=== PATIENT | female | born 1935 | race African-American/Black ===

== ENCOUNTER 2017-02-12 06:40 | Inpatient (IN) | payer MEDICARE, OTHER ==
[2017-02-12] VITALS (8 sets, daily range): BP systolic 114–163; BP diastolic 67–80
[~2017-02-12] VITALS: Ht 170.2 cm; Wt 70.8 kg
[2017-02-12] MEDS ORDERED: Morphine Sulfate 4mg/ml Inj IVP ONE (06:45)
--- NOTE | 2017-02-12 06:59 | Emergency Room Report ---
History of Present Illness General Chief Complaint: Abdominal Pain Source: Patient, EMS Present Illness HPI The patient presents with left flank and left chest pain. It is a constant pain and also is intermittent quality to it. She rates it 7/10 and sharp. It' s not exertional. When he gets worse she's not doing anything differently. She denies any fevers, nausea, vomiting, diarrhea. She last moved her bowels yesterday and they were normal. The patient is on Elaquis. She states it's for her circulation. Denies DVT or PE. She's never had this pain before. Stomach cancer treated 2009 with surgery, chemo and radiation. Allergies: Coded Allergies: Dried Fruit (Verified Allergy, Unknown, 02/12/17) all fruit PEANUT (Verified Allergy, Unknown, 02/12/17) Patient History Past Medical History: see triage record Past Surgical History: other - stomach cancer surgery Social History Narrative Lives with her son Last Menstrual Period: NONE Reviewed Nursing Documentation: PMH: Agreed, PSxH: Agreed Nursing Documentation-PMH Hx Hypertension: Yes Hx Cancer: Yes - STOMACH CA Review of Systems All Other Systems: negative except mentioned in HPI Physical Exam Vital Signs Date Time Temp Pulse Resp B/P Pulse Ox O2 Delivery O2 Flow Rate FiO2 02/12/17 06:29 97.5 70 20 163/81 97 Room Air Sp02 EP Interpretation: reviewed, normal General Appearance: well appearing, no apparent distress, GCS 15 Head: normocephalic Eyes: bilateral eye PERRL, bilateral eye conjunctivae pale ENT: moist mucus membranes Neck: supple Respiratory: chest non-tender, lungs clear, normal breath sounds, other - she points to area under L breast and upper abdomen where she feels pain Cardiovascular #1: regular rate, rhythm Cardiovascular #2: 2+ radial (R) Gastrointestinal: normal inspection, normal bowel sounds, non tender, no mass, non-distended Musculoskeletal: back normal, gait/station normal, normal range of motion Neurologic: alert, oriented x3, grossly normal Psychiatric: mood/affect normal Skin: warm/dry, pallor Medical Decision Making Diagnostic Impression: Primary Impression: Chest pain Qualified Codes: R07.9 - Chest pain, unspecified Additional Impression: Abdominal pain Qualified Codes: R10.12 - Left upper quadrant pain ER Course Patient presents with left flank and left chest pain. Differential includes acute myocardial infarction, renal stone, unstable angina, gastritis amongst others. She's on Oquist at this time. Have to consider possibility of a pulmonary embolus. Evaluation will be with labs, EKG, chest x-ray and CT any of abdomen and chest. She was treated with IV hydration and analgesia. Difficult to differentiate between chest and abdominal pain. Labs unremarkable however, still paroxysms of pain. Analgesia repeated. D dimer elevated CTA ordered. CTA negative. Still with significant pain. CT abd with gall stone - pain not on R (excludes cholecystics). Admit med, Dr. Barreto. Last Vital Signs Date Time Temp Pulse Resp B/P Pulse Ox O2 Delivery O2 Flow Rate FiO2 02/12/17 20:00 97.9 54 21 114/72 97 Room Air EKG Diagnostic Results Rate: bradycardiac Rhythm: NSR ST Segments: no acute changes Rhythm Strip Diag. Results EP Interpretation: yes Rhythm: no PVC's, no ectopy Chest X-Ray Diagnostic Results EP Interpretation: Yes Findings: no consolidation, no effusion, no pneumothorax, no acute cardiopulmonary disease Number of Views: 1 CT/MRI/US Diagnostic Results CT/MRI/US Diagnostic Results #1: Imaging Test Ordered: CTA chest Impression no PE CT/MRI/US Diagnostic Results #2: Imaging Test Ordered: abd/pelvis Impression Impression: Cholelithiasis with gallbladder distention. Please correlate clinically for cholecystitis. Moderate fecal retention. Spondylosis Bilateral renal cysts Accessory spleen Last Vital Signs Date Time Temp Pulse Resp B/P Pulse Ox O2 Delivery O2 Flow Rate FiO2 02/12/17 06:29 97.5 70 20 163/81 97 Room Air Status: unchanged Disposition: ADMITTED INPATIENT Condition: Serious Eduardo Williamson M.D. February 12, 2017 06:59
[2017-02-12 07:06] LABS: EOSINOPHILS % (AUTO) 3.1 % (0.0-3.0); LYMPHOCYTES % (AUTO) 35.9 % (20.0-45.0); MEAN CORPUSCULAR HGB CONC 32.8 G/DL (32.0-36.0); MEAN CORPUSCULAR VOLUME 104 FL (80-99); MEAN PLATELET VOLUME 6.5 FL (6.5-10.1); MONOCYTES % (AUTO) 12.9 % (1.0-10.0); NEUTROPHILS % (AUTO) 47.1 % (45.0-75.0); PLATELET COUNT 245 K/UL (150-450); RED BLOOD COUNT 3.84 M/UL (4.20-5.40); RED CELL DISTRIBUTION WIDTH 11.4 % (11.6-14.8); WHITE BLOOD COUNT 3.5 K/UL (4.8-10.8)
[2017-02-12 07:11] LABS: INR 1.1 (0.9-1.1)
[2017-02-12 07:15] LABS: TROPONIN I < 0.30 ng/mL (<=0.30)
[2017-02-12] MEDS ORDERED: TYLENOL EXTRA500 MG ORAL (07:22)
[2017-02-12] MEDS ORDERED: VITAMIN D1000 UNI1 ORAL (07:22)
[2017-02-12] MEDS ORDERED: ELIQUIS5 MG PO (07:22)
[2017-02-12] MEDS ORDERED: AMIODARONE HCL400 M1 ORAL (07:22)
[2017-02-12] MEDS ORDERED: DOCUSATE SODIU100 MG ORAL (07:22)
[2017-02-12] MEDS ORDERED: FERROUS SULFAT325 MG ORAL (07:22)
[2017-02-12] MEDS ORDERED: HYDROCHLOROTH12.5 M2 ORAL (07:22)
[2017-02-12] MEDS ORDERED: VITAMIN B-121000 MC2 SL (07:22)
[2017-02-12] MEDS ORDERED: LOVASTATIN40 MG ORAL (07:22)
[2017-02-12 07:23] LABS: ALANINE AMINOTRANSFERASE 20 U/L (3-33); ALBUMIN/GLOBULIN RATIO 0.9 (1.0-2.7); ANION GAP 17 (5-15); ASPARTATE AMINO TRANSFERASE 25 U/L (5-40); CALCIUM 10.4 mg/dL (8.6-10.2); CARBON DIOXIDE 26 mEQ/L (20-30); CHLORIDE 96 mEQ/L (98-107); CREATININE 1.5 mg/dL (0.5-0.9); HEMOLYSIS 4; LIPASE 40 U/L (< 60); POTASSIUM 3.7 mEQ/L (3.4-4.9); SODIUM 139 mEQ/L (135-145); TOTAL PROTEIN 7.9 g/dL (6.6-8.7)
[2017-02-12] MEDS ORDERED: Morphine Sulfate 4mg/ml Inj IVP PRN (09:15)
[2017-02-12 09:23] LABS: APPEARANCE,URINE CLEAR; KETONES,URINE NEGATIVE (NEGATIVE); LEUKOCYTE ESTERASE ,URINE NEGATIVE (NEGATIVE); NITRITE,URINE NEGATIVE (NEGATIVE); PH,URINE 6.5 (4.5-8.0); PROTEIN,URINE NEGATIVE (NEGATIVE); UROBILINOGEN,URINE NORMAL MG/DL (0.0-1.0)
--- NOTE | 2017-02-12 10:15 | Diagnostic Imaging Report ---
Indication: Chest Pain Comparison: None A single view chest radiograph was obtained. Findings: Cardiomediastinal appearance is within normal limits for age. Pulmonary vascularity is appropriate. The diaphragmatic contour is smooth and costophrenic angles are sharp. No pleural effusions are identified. The bones are osteopenic. Impression: No acute findings
--- NOTE | 2017-02-12 10:49 | Diagnostic Imaging Report ---
Indication: Chest pain Technique: Continuous helical transaxial imaging of the chest was obtained from the thoracic inlet to the upper abdomen during rapid intravenous contrast administration. Arterial phase of enhancement obtained. Coronal 2-D reformats were also obtained and maximum intensity projection images in multiple planes. Study obtained in a Siemens sensation [address] Total Dose length Product (DLP): [address] Dose Index Volume (CTDIvol): 12.6, 4.6, 88.4, 17.6, 15.2 mGy Comparison: None Findings: The pulmonary artery is well opacified and shows no filling defects. The lungs are clear. There is no adenopathy, pleural or pericardial effusions are identified. The aortic dissection or aneurysm identified within the chest. Aorta shows mural calcification. Cystic focus noted within the right lower lobe possibly a pneumatocele. Mild posterior basilar atelectasis is present. There is a 1.6 cm nodule, possibly cystic in the anterior chest wall to the right side. This may be of dermal origin such as a sebaceous cyst. This could be within the breast parenchyma. Suggest outpatient mammographic/sonographic workup. Impression: No evidence of pulmonary embolus, aortic dissection or aneurysm. Mild atherosclerotic vascular disease noted. Incidental 1.6 cm probable cystic nodule medial right breast/chest wall. Suggest sonographic/mammographic workup. The CT scanner at [facility] is accredited by the [employer] and the scans are performed using dose optimization techniques as appropriate to a performed exam including Automatic Exposure control.
--- NOTE | 2017-02-12 10:51 | Diagnostic Imaging Report ---
Indication: Abdominal pain Technique: Continuous helical transaxial imaging of the abdomen and pelvis was obtained from the lung bases to the pubic symphysis during intravenous contrast administration. Coronal 2-D reformats were also obtained. Study obtained in a Siemens sensation [address] Total Dose length Product (DLP): Refer to CTA chest mGycm CT Dose Index Volume (CTDIvol): Refer CTA chest mGy Comparison: None Findings: Large gallstone noted within a distended gallbladder. No obvious wall thickening identified. Is a moderate amount of fecal material within the colon. The liver is unremarkable. Accessory spleen noted. Pancreas is unremarkable. 4 cm cyst noted in the right kidney. Other smaller cysts are noted. There is no evidence of free fluid or bowel obstruction. There is moderate amount of fecal material within the colon and some distention of the rectum due to feces. Minimal anterolisthesis L4 on 5 demonstrated. Vacuum disc phenomena at L4-5 and L5-S1, hypertrophic spurring of the endplates and facets noted. Impression: Cholelithiasis with gallbladder distention. Please correlate clinically for cholecystitis. Moderate fecal retention. Spondylosis Bilateral renal cysts Accessory spleen The CT scanner at [facility] is accredited by the [employer] and the scans are performed using dose optimization techniques as appropriate to a performed exam including Automatic Exposure control.
[2017-02-12] MEDS ORDERED: Enalaprilat 2.5mg/2ml Inj IV PRN (12:00)
[2017-02-12] MEDS ORDERED: DuoNeb 0.5-3(2.5)mg/3ml neb HHN PRN (12:00)
[2017-02-12] MEDS ORDERED: Miralax 17gm pkt ORAL PRN (12:00)
[2017-02-12] MEDS ORDERED: Nitroglycerin Subl 0.4mg tab (Bottle Of 25) SL PRN (12:00)
[2017-02-12] MEDS ORDERED: Morphine Sulfate 2mg/ml Inj IVP PRN (12:00)
--- NOTE | 2017-02-12 13:57 | Consultation ---
Consult Note Consult Note ID Dic# [id number] VIIV BOWLES M.D. February 12, 2017 13:57
[2017-02-12 14:41] LABS: TROPONIN I < 0.30 ng/mL (<=0.30)
--- NOTE | 2017-02-12 15:06 | Consultation ---
Consult Note Consult Note Cardiology for Dr. Kumar full note dictated # [id number] 81 yo AAF w/ htn, PAF and gastric CA, s/p surgery/chemo/xrt in 2008 adm w L sided CP. In ER, chest CTA negative for PE, Ao dissection, but w/ R breast vs chest wall cystic mass. Initial troponin normal. She is bradycardic- poss ectopic atrial rhythm. REc: adm to tele check serial troponins, ekgs and echo Decrease amiodarone to 100 mg/d Change eliquis to iv heparin in case invasive procedures needed. DIANA MENDEZ February 12, 2017 15:06
[2017-02-12] MEDS ORDERED: Heparin 25,000u/D5W 500ml 500 ML IV SCH (15:30)
[2017-02-12] MEDS ORDERED: Heparin 25,000 units/D5W 500ml (ACS/MI) IV SCH (15:45)
[2017-02-12] MEDS ORDERED: Heparin 5000 units/ml inj IV ONE ×2 (15:45→18:00)
[2017-02-12] MEDS ORDERED: Diltiazem 25mg/5ml IV PRN (16:00)
[2017-02-12 16:10] LABS: BASOPHILS % (AUTO) 0.8 % (0.0-2.0); EOSINOPHILS % (AUTO) 0.6 % (0.0-3.0); LYMPHOCYTES % (AUTO) 16.2 % (20.0-45.0); MEAN CORPUSCULAR HEMOGLOBIN 34.1 PG (27.0-31.0); MEAN CORPUSCULAR VOLUME 103 FL (80-99); MEAN PLATELET VOLUME 6.5 FL (6.5-10.1); MONOCYTES % (AUTO) 6.9 % (1.0-10.0); NEUTROPHILS % (AUTO) 75.5 % (45.0-75.0); PLATELET COUNT 226 K/UL (150-450); RED CELL DISTRIBUTION WIDTH 11.3 % (11.6-14.8); WHITE BLOOD COUNT 4.7 K/UL (4.8-10.8)
--- NOTE | 2017-02-12 16:24 | History and Physical ---
History of Present Illness General Date patient seen: February 12, 2017 Reason for Hospitalization: Abdominal Pain Present Illness HPI 81 year old female with hx of afib, HTN, brought in by paramedics with CC of left sided abdominal pain and constipation. A CT of abdomen and chest in ER showed cholangitis. Because of her hx of afib she is admitted to telemetry. Allergies: Coded Allergies: Dried Fruit (Verified Allergy, Unknown, 02/12/17) all fruit PEANUT (Verified Allergy, Unknown, 02/12/17) Medication History Scheduled Amiodarone Hcl* (Amiodarone Hcl*), 200 MG ORAL EVERY 12 HOURS, (Reported) Apixaban (Eliquis), 5 MG PO DAILY, (Reported) Cholecalciferol (Vitamin D3)* (Vitamin D*), 5,000 UNIT ORAL DAILY, (Reported) Docusate Sodium* (Docusate Sodium*), 100 MG ORAL DAILY, (Reported) Ferrous Sulfate* (Ferrous Sulfate*), 325 MG ORAL THREE TIMES A DAY, (Reported) Hydrochlorothiazide* (Hydrochlorothiazide*), 12.5 MG ORAL DAILY, (Reported) Lovastatin (Lovastatin), 40 MG ORAL BEDTIME, (Reported) Scheduled PRN Acetaminophen* (Tylenol Extra Strength*), 500 MG ORAL Q6H PRN for Mild Pain/ Temp > 100.5, (Reported) Miscellaneous Medications Cyanocobalamin (Vitamin B-12) (Vitamin B-12), 1,000 MCG SL, (Reported) Patient History Healthcare decision maker LYRIC Amezquita Resuscitation status Full Code Advanced Directive on File Past Medical/Surgical History Past Medical/Surgical History: (1) Paroxysmal a-fib Review of Systems Gastrointestinal: Reports: constipation All Other Systems: negative except mentioned in HPI Physical Exam General Appearance: WD/WN Lines, tubes and drains: peripheral, central line HEENT: normocephalic, atraumatic Neck: non-tender, normal alignment Respiratory/Chest: chest wall non-tender, lungs clear Cardiovascular/Chest: normal peripheral pulses, normal rate Abdomen: normal bowel sounds, non tender Genitourinary/Rectal: normal genital exam, normal rectal exam, normal prostate exam Extremities: non-tender Skin Exam: normal pigmentation Neurologic: restorative coordinator II-XII grossly normal Last 24 Hour Vital Signs Date Time Temp Pulse Resp B/P Pulse Ox O2 Delivery O2 Flow Rate FiO2 02/12/17 15:53 97.7 55 18 147/77 99 Room Air 02/12/17 12:31 96.3 49 18 159/80 94 Room Air 02/12/17 11:56 52 18 145/67 100 Room Air 02/12/17 11:54 52 16 145/67 98 Room Air 02/12/17 10:30 52 18 145/67 100 Room Air 02/12/17 09:39 54 18 153/79 100 Room Air 02/12/17 09:39 97.5 02/12/17 08:21 54 16 163/75 100 Room Air 02/12/17 07:24 97.5 02/12/17 06:40 97.8 53 15 158/76 100 Room Air 02/12/17 06:29 97.5 70 20 163/81 97 Room Air Laboratory Tests Test 02/12/17 06:45 02/12/17 09:10 02/12/17 14:15 02/12/17 15:50 White Blood Count 3.5 K/UL (4.8-10.8) L 4.7 K/UL (4.8-10.8) L Red Blood Count 3.84 M/UL (4.20-5.40) L 3.50 M/UL (4.20-5.40) L Hemoglobin 13.1 G/DL (12.0-16.0) 11.9 G/DL (12.0-16.0) L Hematocrit 39.9 % (37.0-47.0) 36.2 % (37.0-47.0) L Mean Corpuscular Volume 104 FL (80-99) H 103 FL (80-99) H Mean Corpuscular Hemoglobin 34.0 PG (27.0-31.0) H 34.1 PG (27.0-31.0) H Mean Corpuscular Hemoglobin Concent 32.8 G/DL (32.0-36.0) 33.0 G/DL (32.0-36.0) Red Cell Distribution Width 11.4 % (11.6-14.8) L 11.3 % (11.6-14.8) L Platelet Count 245 K/UL (150-450) 226 K/UL (150-450) Mean Platelet Volume 6.5 FL (6.5-10.1) 6.5 FL (6.5-10.1) Neutrophils (%) (Auto) 47.1 % (45.0-75.0) 75.5 % (45.0-75.0) H Lymphocytes (%) (Auto) 35.9 % (20.0-45.0) 16.2 % (20.0-45.0) L Monocytes (%) (Auto) 12.9 % (1.0-10.0) H 6.9 % (1.0-10.0) Eosinophils (%) (Auto) 3.1 % (0.0-3.0) H 0.6 % (0.0-3.0) Basophils (%) (Auto) 1.0 % (0.0-2.0) 0.8 % (0.0-2.0) Prothrombin Time 11.0 SEC (9.30-11.50) Prothromb Time International Ratio 1.1 (0.9-1.1) Activated Partial Thromboplast Time 28 SEC (23-33) Pending Sodium Level 139 mEQ/L (135-145) Potassium Level 3.7 mEQ/L (3.4-4.9) Chloride Level 96 mEQ/L (98-107) L Carbon Dioxide Level 26 mEQ/L (20-30) Anion Gap 17 (5-15) H Blood Urea Nitrogen 25 mg/dL (7-23) H Creatinine 1.5 mg/dL (0.5-0.9) H Estimat Glomerular Filtration Rate mL/min (>60) Glucose Level 94 mg/dL (74-106) Calcium Level 10.4 mg/dL (8.6-10.2) H Total Bilirubin 0.7 mg/dL (0.0-1.2) Aspartate Amino Transf (AST/SGOT) 25 U/L (5-40) Alanine Aminotransferase (ALT/SGPT) 20 U/L (3-33) Alkaline Phosphatase 67 U/L (35-104) Troponin I < 0.30 ng/mL (<=0.30) < 0.30 ng/mL (<=0.30) Total Protein 7.9 g/dL (6.6-8.7) Albumin 3.9 g/dL (3.5-5.2) Globulin 4.0 g/dL Albumin/Globulin Ratio 0.9 (1.0-2.7) L Lipase 40 U/L (< 60) Urine Color Pale yellow Urine Appearance Clear Urine pH 6.5 (4.5-8.0) Urine Specific Cross 1.005 (1.005-1.035) Urine Protein Negative (NEGATIVE) Urine Glucose (UA) Negative (NEGATIVE) Urine Ketones Negative (NEGATIVE) Urine Occult Blood Negative (NEGATIVE) Urine Nitrite Negative (NEGATIVE) Urine Bilirubin Negative (NEGATIVE) Urine Urobilinogen Normal MG/DL (0.0-1.0) Urine Leukocyte Esterase Negative (NEGATIVE) D-Dimer 60 ng/mL (<500) Height (Feet): 5 Height (Inches): 7.00 Weight (Pounds): 156 Medications Current Medications Medications (Trade) Dose Ordered Sig/Amanda Route PRN Reason Start Time Stop Time Status Last Admin Dose Admin Acetaminophen (Tylenol) 650 mg Q4H PRN ORAL T>100.5 02/12/17 12:00 03/14/17 11:59 Albuterol/ Ipratropium (DuoNeb 0.5-3(2.5)mg/3ml) 3 ml Q4H PRN HHN Shortness of Breath 02/12/17 12:00 02/17/17 11:59 Amiodarone HCl 100 mg 100 mg DAILY ORAL 02/13/17 09:00 03/15/17 08:59 Aspirin (ASA) 162 mg DAILY ORAL 02/13/17 09:00 03/15/17 08:59 Dextrose/Sodium Chloride (D5 0.45% NS) 1,000 ml @ 75 mls/hr [id number] IV 02/12/17 16:15 03/14/17 16:14 UNV Diltiazem HCl (Cardizem) 10 mg EVERY HOUR PRN IV HR>120 02/12/17 16:00 03/14/17 15:59 Docusate Sodium (Colace) 100 mg THREE TIMES A DAY ORAL 02/12/17 18:00 03/14/17 17:59 UNV Enalaprilat (Vasotec) 2.5 mg Q6H PRN IV sbp more than 160 02/12/17 12:00 03/14/17 11:59 Heparin Sodium (Porcine) (Heparin 5000 units/ml) 5,000 units ONCE ONCE IV 02/12/17 18:00 02/12/17 18:01 Heparin Sodium/ Dextrose (Heparin) 500 ml @ 25.474 mls/ hr Q24H IV 02/12/17 18:00 03/14/17 17:59 Lactulose (Cephulac) 30 gm THREE TIMES A DAY ORAL 02/12/17 18:00 03/14/17 17:59 UNV Mineral Oil (Fleet's Mineral Oil Enema) 133 ml EVERY OTHER DAY RECTAL 02/14/17 09:00 03/16/17 08:59 UNV Morphine Sulfate (Morphine Sulfate) 2 mg Q4H PRN IVP Severe Pain (Pain Scale 7-10) 02/12/17 12:00 02/19/17 11:59 Nitroglycerin (Ntg) 0.4 mg Q5MIN X 3 DOSES PRN SL Prn Chest Pain 02/12/17 12:00 03/14/17 11:59 Ondansetron HCl (Zofran) 4 mg Q6H PRN IVP Nausea & Vomiting 02/12/17 12:00 03/14/17 11:59 02/12/17 16:06 Pantoprazole (Protonix) 40 mg DAILY ORAL 02/13/17 09:00 03/15/17 08:59 Polyethylene Glycol (Miralax) 17 gm BEDTIME ORAL 02/12/17 21:00 03/14/17 20:59 UNV Polyethylene Glycol (Miralax) 17 gm DAILYPRN PRN ORAL Constipation 02/12/17 12:00 03/14/17 11:59 Sennosides 8.6 mg 8.6 mg DAILY ORAL 02/13/17 09:00 03/15/17 08:59 UNV Temazepam (Restoril) 15 mg HSPRN PRN ORAL Insomnia 02/12/17 21:00 02/19/17 20:59 Assessment/Plan Problem List: (1) ACS (acute coronary syndrome) ICD Codes: I24.9 - Acute ischemic heart disease, unspecified SNOMED: 972624960 (2) Paroxysmal a-fib ICD Codes: I48.0 - Paroxysmal atrial fibrillation SNOMED: 336456125 (3) Cholecystitis ICD Codes: K81.9 - Cholecystitis, unspecified SNOMED: 15949955, 82882405 (4) Constipation ICD Codes: K59.00 - Constipation, unspecified SNOMED: 41456421 Assessment/Plan NPO GI evaluation cardio evaluation laxatives monitor heart rate JAIME IVORY February 12, 2017 16:24
[2017-02-12] MEDS ORDERED: D5 1/2NS 1,000 ML IV SCH (16:45)
[2017-02-12] MEDS: Docusate 100mg cap ORAL SCH (17:45)
[2017-02-12] MEDS: Lactulose 20gm/30ml UDC ORAL SCH (17:45)
[2017-02-12] MEDS ORDERED: Heparin 25,000u/D5W 500ml (VTE/AF) IV SCH (18:00)
--- NOTE | 2017-02-12 18:15 | Consultation ---
DATE OF CONSULTATION: CARDIOLOGY CONSULTATION Coverage for Dr. Kumar. REASON FOR CONSULT: Left chest pain. HISTORY OF PRESENT ILLNESS: The patient is an 81-year-old woman with a history of stomach cancer, treated in 2008 with surgery, chemotherapy and radiation, history of paroxysmal atrial fibrillation and hypertension, who presents with left chest pain, which started early on the morning of admission about 4 a.m. She describes it as a intermittent sharp pain. She presented to the emergency room where blood pressure was 163/81, pulse 70, and sinus rhythm. Her initial EKG did not show any acute ischemic changes. She was admitted for further treatment. She reports that on moving from the emergency room to the medical floor. She experienced dizziness and nausea. She denies vomiting, dyspnea, palpitations or syncope. She has not had any previous similar symptoms. PAST MEDICAL HISTORY: As noted above. Also, history of hyperlipidemia and history of gastric cancer, treated with surgery, chemotherapy and radiation. MEDICATIONS: At home, iron sulfate 324 mg daily, Eliquis 5 mg p.o. b.i.d., amiodarone 200 mg p.o. daily, hydrochlorothiazide 12.5 mg daily, lovastatin 40 mg daily, and Colace 100 mg p.o. daily. ALLERGIES: No known drug allergies. SOCIAL HISTORY: The patient is a nonsmoker. Does not drink alcohol. REVIEW OF SYSTEMS: Constitutional: No recent significant weight gain or loss. No fever chills or sweats. Gastrointestinal: No previous nausea, vomiting, diarrhea or abdominal pain. Musculoskeletal: Intermittent joint pain. Leg pain with walking. PHYSICAL EXAMINATION: GENERAL: Alert, well-developed female, in no acute distress. VITAL SIGNS: Blood pressure is 159/80, pulse 49 and regular, respirations 18, and afebrile. HEENT: Normocephalic and atraumatic. Sclerae anicteric. Pupils are equal, round, and reactive to light. Oral mucosa are moist. NECK: Supple. There is no jugular venous distention. No carotid bruits. LUNGS: Clear to auscultation bilaterally. HEART: Bradycardic. Regular S1 and S2 with no murmurs, rubs, S3, or S4. ABDOMEN: Soft and nontender. No palpable mass. Healed midline surgical scar. EXTREMITIES: No cyanosis, clubbing, or edema. A 2+ dorsalis pedis pulse and posterior tibial pulses bilaterally. SKIN: No rashes or lesions. PSYCHIATRIC: Appropriate mood and affect. NEUROLOGIC: No focal or motor deficits. LABORATORY AND DIAGNOSTIC DATA: Hemoglobin 13, white blood count 3500 and platelets 245,000. Troponin less than 0.3 on admission and repeat today at 215. Potassium 3.7, BUN 25, creatinine 1.5, and sodium 139. Urinalysis is negative. EKG shows sinus bradycardia at a rate of 55 beats per minute with short FL interval, possible ectopic atrial rhythm, poor R progression V1 and V2, T-wave inversion in V3 and V4, leads III and generalized flattening of the T-waves. ASSESSMENT AND RECOMMENDATIONS: The patient is an 81-year-old woman who presents with left-sided chest pain. She has a history of hypertension, paroxysmal atrial fibrillation, and gastric cancer treated in 2008. The cause of her pain is unclear. She did have an abdominal CT, which showed cholelithiasis with gallbladder distention. It is unlikely that this would be the cause of her symptoms given that the pain is left-sided. She has no abdominal pain or acute abdominal exam findings. She does not appear with evidence for an acute coronary syndrome, as initial troponins are negative. I would further evaluate for possible pulmonary embolus with D-dimer and venous duplex of the lower extremities, possibly also with ventilation/perfusion scan. She is noted to be bradycardic, possibly with an ectopic atrial rhythm. I would decrease amiodarone and will change Eliquis to heparin for now in case any invasive procedures are needed. Dulce Marsh M.D. DR: DARRELL JOB#: [id number] CC:
[2017-02-12] MEDS ORDERED: Amiodarone 200mg tab ORAL SCH (21:00)
[2017-02-12] MEDS ORDERED: Eliquis 2.5mg tablet ORAL SCH (21:00)
[2017-02-12] MEDS: Miralax 17gm pkt ORAL SCH (21:26)
--- NOTE | 2017-02-12 22:30 | Consultation ---
DATE OF CONSULTATION: 02/12/2017 INFECTIOUS DISEASE CONSULTATION CONSULTING PHYSICIAN: Gabe Romero M.D REFERRING PHYSICIAN: Renea Barreto M.D. REASON FOR CONSULTATION: Possible cholecystitis, antibiotic management. HISTORY OF PRESENT ILLNESS: The patient is an 81-year-old female with multiple medical problems who has been admitted to this medical center with a sudden onset left chest pain and left arm pain. The patient's ultrasound showed evidence of cholelithiasis and mild distention of gallbladder. Infectious Disease consultation has been requested for further evaluation of the patient's antibiotic management and possible need for antibiotics. The patient also has been complaining of cough that has been started about a month ago that has resolved. However, since a week ago, the patient started to have cough that is mainly dry. PAST MEDICAL HISTORY: Hypertension, normotensive. ALLERGIES: No known drug allergies. SOCIAL HISTORY: Lives at home. FAMILY HISTORY: Not contributing. REVIEW OF SYSTEMS: HEENT: No recent change in vision or hearing. Pulmonary: As mentioned above. Cardiovascular: As mentioned above. Gastrointestinal/Abdomen: As mentioned above. Genitourinary: No dysuria. MEDICATIONS: The patient is currently off of antibiotics. PHYSICAL EXAMINATION: VITAL SIGNS: Temperature 96, blood pressure 159/80, pulse 86, and respiratory rate 18. HEENT: Mild pale conjunctivae. No icterus. NECK: No lymphadenopathy. CHEST: Coarse breathing sounds. HEART: S1 and S2. ABDOMEN: Soft and nontender. EXTREMITIES: No cyanosis, nontender at the time of exam. NEUROLOGIC: Awake and alert. LABORATORY AND DIAGNOSTIC DATA: White blood cell count 3.5, hemoglobin 13, and platelets 245,000. UA unremarkable. BUN 25 and creatinine 1.5. Liver function test is unremarkable. Chest x-ray, no acute finding. CT scan of the abdomen showed cholelithiasis with gallbladder distention. CT of chest, no evidence of PE. ASSESSMENT: The patient is an 81-year-old female with multiple medical problems, who has been admitted to medical center with left-sided chest pain. The patient's ultrasound showed cholelithiasis with distention of gallbladder. However, the patient does not have any abdominal pain. There is no tenderness. Liver function is normal. Less likely the patient has cholecystitis clinically. The patient also has a cough, which is dry. CT of the chest did not show evidence of infiltrate. However, the patient may have bronchitis that will benefit from a short course of atypical. PLAN: 1. We will start the patient on IV Zithromax day #10/01. 2. Monitor CBC. 3. Monitor BMP. 4. We will follow the patient's labs and cardiac enzymes. 5. Based on those, we will give further recommendations. Thank you Dr. Barreto for allowing me to participate in the care of this patient. I will follow the patient with you during this hospitalization. Gabe Romero M.D. DR: EMMA JOB#: [id number] CC:
[2017-02-13] VITALS: BP 104/60
[2017-02-13] MEDS: Heparin 25,000u/D5W 500ml (VTE/AF) IV SCH ×2 (02:53→18:28)
[2017-02-13 04:00] VITALS: BP 127/72
--- NOTE | 2017-02-13 07:29 | Cardiology Report ---
APPROVED REPORT EXAM: Two-dimensional and M-mode echocardiogram with Doppler and color Doppler. INDICATION Left ventricular function M-Mode DIMENSIONS IVSd0.6 (0.7-1.1cm)Left Atrium (MM)2.0 (1.6-4.0cm) LVDd5.3 (3.5-5.6cm)Aortic Root2.9 (2.0-3.7cm) PWd0.8 (0.7-1.1cm)Aortic Cusp Exc.1.7 (1.5-2.0cm) LVDs3.9 (2.5-4.0cm) PWs0.7 cm Normal left ventricular chamber size, systolic function and wall motion. Left ventricular ejection fraction estimated to be 55-60%. Mild left ventricular hypertrophy. No evidence of pericardial fat or effusion. All other cardiac chamber sizes are within normal limits. Focal aortic valve sclerosis with adequate cusp excursion Thickened mitral valve leaflets with normal excursion. Mild mitral annulus and aortic root calcification. Pulmonic valve not well visualized. Normal tricuspid valve structure. IVC is normal in size with physiologic collapse. A color flow and spectral Doppler study was performed and revealed: Mild aortic regurgitation. Moderate mitral regurgitation. Left ventricular diastolic dysfunction grade 1. Mild tricuspid regurgitation. Tricuspid systolic velocities suggests peak right ventricular systolic pressure of 35mmHg Consistent with mild pulmonary hypertension.
[2017-02-13 08:00] VITALS: BP 93/55
[2017-02-13 08:59] LABS: MEAN CORPUSCULAR HEMOGLOBIN 33.6 PG (27.0-31.0); MEAN CORPUSCULAR HGB CONC 32.7 G/DL (32.0-36.0); MEAN CORPUSCULAR VOLUME 103 FL (80-99); MEAN PLATELET VOLUME 6.4 FL (6.5-10.1); PLATELET COUNT 214 K/UL (150-450); RED CELL DISTRIBUTION WIDTH 11.3 % (11.6-14.8); WHITE BLOOD COUNT 2.8 K/UL (4.8-10.8)
[2017-02-13 09:09] LABS: INR 1.1 (0.9-1.1); PROTHROMBIN TIME 11.3 SEC (9.30-11.50)
[2017-02-13 09:21] LABS: TROPONIN I < 0.30 ng/mL (<=0.30)
[2017-02-13 09:31] LABS: BAND NEUTROPHILS % (MANUAL) 0 % (0-8); BASOPHILS % (MANUAL) 0 % (0-2); EOSINOPHILS % (MANUAL) 1 % (0-3); LYMPHOCYTES % (MANUAL) 27 % (20-45); MACROCYTES 1+; NEUTROPHILS % (MANUAL) 64 % (45-75); PLATELET ESTIMATE ADEQUATE; PLATELET MORPHOLOGY NORMAL; TOTAL CELLS COUNTED 100
[2017-02-13 09:40] LABS: ALANINE AMINOTRANSFERASE 15 U/L (3-33); ALBUMIN/GLOBULIN RATIO 0.9 (1.0-2.7); ASPARTATE AMINO TRANSFERASE 21 U/L (5-40); CALCIUM 9.2 mg/dL (8.6-10.2); CARBON DIOXIDE 24 mEQ/L (20-30); CHOLESTEROL 99 mg/dL (< 200); CHOLESTEROL/HDL RATIO 2.3 (3.3-4.4); CREATININE 1.2 mg/dL (0.5-0.9); CRP QUANT < 0.3 mg/dL (< 0.5); HEMOLYSIS 14; LDL CHOLESTEROL (CALC.) 48 mg/dL (60-99); TOTAL PROTEIN 6.4 g/dL (6.6-8.7)
[2017-02-13 09:46] LABS: ANION GAP 16 (5-15); CHLORIDE 100 mEQ/L (98-107); POTASSIUM 4.3 mEQ/L (3.4-4.9); SODIUM 140 mEQ/L (135-145)
[2017-02-13 09:50] LABS: THYROID STIMULATING HORMONE 0.943 uIU/mL (0.300-4.500)
[2017-02-13] MEDS: Lactulose 20gm/30ml UDC ORAL SCH ×3 (09:50→18:00)
[2017-02-13] MEDS: Aspirin Baby 81mg ORAL SCH (09:50)
[2017-02-13] MEDS: Amiodarone 200mg tab ORAL SCH (09:50)
[2017-02-13] MEDS: Docusate 100mg cap ORAL SCH ×3 (09:50→18:00)
--- NOTE | 2017-02-13 11:15 | Diagnostic Imaging Report ---
Indication: Abdominal pain, abnormal recent CT scan Technique: IV administration 5.8 mCi 99M technetium mebrofenin. Serial images obtained over the abdomen for one hour Comparison: Reference made to CT scan 02/12/2017 Findings: There is prompt tracer uptake within the liver. Extrahepatic bile ducts are visualized at 7 minutes. Activity in the duodenum is seen at 13 minutes. The gallbladder begins to fill at 37 minutes. Impression: Negative. No evidence of cystic duct or common bile duct obstruction.
--- NOTE | 2017-02-13 11:15 | Pulmonology Progress Note ---
Assessment/Plan Problems: (1) ACS (acute coronary syndrome) (2) Paroxysmal a-fib (3) Cholecystitis (4) Constipation Assessment/Plan pain has resolved no BM yet wants to eat f/u cardio evaluation keep in teli until cleared by cardio Subjective ROS Limited/Unobtainable: No Constitutional: Reports: no symptoms HEENT: Repors: no symptoms Respiratory: Reports: no symptoms Cardiovascular: Reports: no symptoms Gastrointestinal/Abdominal: Reports: no symptoms Allergies: Coded Allergies: Dried Fruit (Verified Allergy, Unknown, 02/12/17) all fruit PEANUT (Verified Allergy, Unknown, 02/12/17) Objective Last 24 Hour Vital Signs Date Time Temp Pulse Resp B/P Pulse Ox O2 Delivery O2 Flow Rate FiO2 02/13/17 08:00 97.4 57 18 93/55 96 Room Air 02/13/17 04:00 52 02/13/17 04:00 97.6 85 22 127/72 98 Room Air 02/13/17 00:00 97.4 52 19 104/60 98 Room Air 02/13/17 00:00 53 02/12/17 20:00 51 02/12/17 20:00 97.9 54 21 114/72 97 Room Air 02/12/17 16:00 56 02/12/17 15:53 97.7 55 18 147/77 99 Room Air 02/12/17 12:31 96.3 49 18 159/80 94 Room Air 02/12/17 11:56 52 18 145/67 100 Room Air 02/12/17 11:54 52 16 145/67 98 Room Air Intake and Output 02/12/17 02/13/17 19:00 07:00 Intake Total 2175.474 ml 239.314 ml Balance 2175.474 ml 239.314 ml Intake Oral 150 ml IV Total 2025.474 ml 239.314 ml # Voids 2 3 General Appearance: WD/WN HEENT: normocephalic, atraumatic Respiratory/Chest: chest wall non-tender, lungs clear Cardiovascular: normal peripheral pulses, normal rate Abdomen: normal bowel sounds, soft, non tender Genitourinary: normal external genitalia Skin: no rash 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 Lymphatic: no neck adenopathy Laboratory Tests 02/12/17 14:15: D-Dimer 60, Troponin I < 0.30 02/12/17 15:50: White Blood Count 4.7L, Red Blood Count 3.50L, Hemoglobin 11.9L, Hematocrit 36.2L, Mean Corpuscular Volume 103H, Mean Corpuscular Hemoglobin 34.1H, Mean Corpuscular Hemoglobin Concent 33.0, Red Cell Distribution Width 11.3L, Platelet Count 226, Mean Platelet Volume 6.5, Neutrophils (%) (Auto) 75.5H, Lymphocytes (%) (Auto) 16.2L, Monocytes (%) (Auto) 6.9, Eosinophils (%) (Auto) 0.6, Basophils (%) (Auto) 0.8, Activated Partial Thromboplast Time 31 02/13/17 00:20: Activated Partial Thromboplast Time 177*H 02/13/17 08:30: Troponin I < 0.30, White Blood Count 2.8L, Red Blood Count 3.40L, Hemoglobin 11.4L, Hematocrit 34.9L, Mean Corpuscular Volume 103H, Mean Corpuscular Hemoglobin 33.6H, Mean Corpuscular Hemoglobin Concent 32.7, Red Cell Distribution Width 11.3L, Platelet Count 214, Mean Platelet Volume 6.4L, Neutrophils (%) (Auto) , Lymphocytes (%) (Auto) , Monocytes (%) (Auto) , Eosinophils (%) (Auto) , Basophils (%) (Auto) , Activated Partial Thromboplast Time 87H, Differential Total Cells Counted 100, Neutrophils % (Manual) 64, Lymphocytes % (Manual) 27, Monocytes % (Manual) 8, Eosinophils % (Manual) 1, Basophils % (Manual) 0, Band Neutrophils 0, Platelet Estimate Adequate, Platelet Morphology Normal, Macrocytosis 1+, Prothrombin Time 11.3, Prothromb Time International Ratio 1.1, Sodium Level 140, Potassium Level 4.3, Chloride Level 100, Carbon Dioxide Level 24, Anion Gap 16H, Blood Urea Nitrogen 18, Creatinine 1.2H, Estimat Glomerular Filtration Rate , Glucose Level 97, Calcium Level 9.2, Total Bilirubin 0.7, Aspartate Amino Transf (AST/SGOT) 21, Alanine Aminotransferase (ALT/SGPT) 15, Alkaline Phosphatase 54, C-Reactive Protein, Quantitative < 0.3, Total Protein 6.4L, Albumin 3.1L, Globulin 3.3, Albumin/ Globulin Ratio 0.9L, Triglycerides Level 34, Cholesterol Level 99, LDL Cholesterol 48L, HDL Cholesterol 44, Cholesterol/HDL Ratio 2.3L, Thyroid Stimulating Hormone (TSH) 0.943 Current Medications Medications (Trade) Dose Ordered Sig/Amanda Route PRN Reason Start Time Stop Time Status Last Admin Dose Admin Acetaminophen (Tylenol) 650 mg Q4H PRN ORAL T>100.5 02/12/17 12:00 03/14/17 11:59 Albuterol/ Ipratropium (DuoNeb 0.5-3(2.5)mg/3ml) 3 ml Q4H PRN HHN Shortness of Breath 02/12/17 12:00 02/17/17 11:59 Amiodarone HCl (Cordarone) 100 mg DAILY ORAL 02/13/17 09:00 03/15/17 08:59 Aspirin (ASA) 162 mg DAILY ORAL 02/13/17 09:00 03/15/17 08:59 Diltiazem HCl (Cardizem) 10 mg EVERY HOUR PRN IV HR>120 02/12/17 16:00 03/14/17 15:59 Docusate Sodium (Colace) 100 mg THREE TIMES A DAY ORAL 02/12/17 18:00 03/14/17 17:59 02/12/17 17:45 Enalaprilat (Vasotec) 2.5 mg Q6H PRN IV sbp more than 160 02/12/17 12:00 03/14/17 11:59 Heparin Sodium/ Dextrose (Heparin) 500 ml @ 19.813 mls/ hr Q24H IV 02/13/17 02:15 03/15/17 02:14 02/13/17 02:53 Lactulose (Cephulac) 30 gm THREE TIMES A DAY ORAL 02/12/17 18:00 03/14/17 17:59 02/12/17 17:45 Mineral Oil (Fleet's Mineral Oil Enema) 133 ml EVERY OTHER DAY RECTAL 02/14/17 09:00 03/16/17 08:59 Morphine Sulfate (Morphine Sulfate) 2 mg Q4H PRN IVP Severe Pain (Pain Scale 7-10) 02/12/17 12:00 02/19/17 11:59 Nitroglycerin (Ntg) 0.4 mg Q5MIN X 3 DOSES PRN SL Prn Chest Pain 02/12/17 12:00 03/14/17 11:59 Ondansetron HCl (Zofran) 4 mg Q6H PRN IVP Nausea & Vomiting 02/12/17 12:00 03/14/17 11:59 02/12/17 16:06 Pantoprazole (Protonix) 40 mg DAILY ORAL 02/13/17 09:00 03/15/17 08:59 Polyethylene Glycol (Miralax) 17 gm BEDTIME ORAL 02/12/17 21:00 03/14/17 20:59 02/12/17 21:26 Polyethylene Glycol (Miralax) 17 gm DAILYPRN PRN ORAL Constipation 02/12/17 12:00 03/14/17 11:59 Sennosides 8.6 mg 8.6 mg DAILY ORAL 02/13/17 09:00 03/15/17 08:59 Temazepam (Restoril) 15 mg HSPRN PRN ORAL Insomnia 02/12/17 21:00 02/19/17 20:59 JAIME IVORY February 13, 2017 11:15
--- NOTE | 2017-02-13 11:23 | Infectious Diseases Prog Note ---
Assessment/Plan Assessment/Plan A: The patient is an 81-year-old female US : holelithiasis and mild distention of gallbladder , but clinically no evid of cholecystitis ( no RUQ pain ) CT of chest, no evidence of PE Paroxysmal atrial fibrillation Gastric cancer SP left chest pain and left arm pain. , CE x 3 : neg HTN PLAN: Doxy day #1/5 Monitor CBC Monitor BMP cardio is following HIDA LExt Doppler Subjective Allergies: Coded Allergies: Dried Fruit (Verified Allergy, Unknown, 02/12/17) all fruit PEANUT (Verified Allergy, Unknown, 02/12/17) Subjective afebrile Objective Vital Signs Last 24 Hour Vital Signs Date Time Temp Pulse Resp B/P Pulse Ox O2 Delivery O2 Flow Rate FiO2 02/13/17 08:00 97.4 57 18 93/55 96 Room Air 02/13/17 04:00 52 02/13/17 04:00 97.6 85 22 127/72 98 Room Air 02/13/17 00:00 97.4 52 19 104/60 98 Room Air 02/13/17 00:00 53 02/12/17 20:00 51 02/12/17 20:00 97.9 54 21 114/72 97 Room Air 02/12/17 16:00 56 02/12/17 15:53 97.7 55 18 147/77 99 Room Air 02/12/17 12:31 96.3 49 18 159/80 94 Room Air 02/12/17 11:56 52 18 145/67 100 Room Air 02/12/17 11:54 52 16 145/67 98 Room Air Height (Feet): 5 Height (Inches): 7.00 Weight (Pounds): 156 HEENT: anicteric Respiratory/Chest: normal breath sounds Cardiovascular: regular rhythm Abdomen: no organomegaly Laboratory Tests Test 02/12/17 14:15 02/12/17 15:50 02/13/17 00:20 02/13/17 08:30 D-Dimer 60 ng/mL (<500) Troponin I < 0.30 ng/mL (<=0.30) < 0.30 ng/mL (<=0.30) White Blood Count 4.7 K/UL (4.8-10.8) L 2.8 K/UL (4.8-10.8) L Red Blood Count 3.50 M/UL (4.20-5.40) L 3.40 M/UL (4.20-5.40) L Hemoglobin 11.9 G/DL (12.0-16.0) L 11.4 G/DL (12.0-16.0) L Hematocrit 36.2 % (37.0-47.0) L 34.9 % (37.0-47.0) L Mean Corpuscular Volume 103 FL (80-99) H 103 FL (80-99) H Mean Corpuscular Hemoglobin 34.1 PG (27.0-31.0) H 33.6 PG (27.0-31.0) H Mean Corpuscular Hemoglobin Concent 33.0 G/DL (32.0-36.0) 32.7 G/DL (32.0-36.0) Red Cell Distribution Width 11.3 % (11.6-14.8) L 11.3 % (11.6-14.8) L Platelet Count 226 K/UL (150-450) 214 K/UL (150-450) Mean Platelet Volume 6.5 FL (6.5-10.1) 6.4 FL (6.5-10.1) L Neutrophils (%) (Auto) 75.5 % (45.0-75.0) H % (45.0-75.0) Lymphocytes (%) (Auto) 16.2 % (20.0-45.0) L % (20.0-45.0) Monocytes (%) (Auto) 6.9 % (1.0-10.0) % (1.0-10.0) Eosinophils (%) (Auto) 0.6 % (0.0-3.0) % (0.0-3.0) Basophils (%) (Auto) 0.8 % (0.0-2.0) % (0.0-2.0) Activated Partial Thromboplast Time 31 SEC (23-33) 177 SEC (23-33) *H 87 SEC (23-33) H Differential Total Cells Counted 100 Neutrophils % (Manual) 64 % (45-75) Lymphocytes % (Manual) 27 % (20-45) Monocytes % (Manual) 8 % (1-10) Eosinophils % (Manual) 1 % (0-3) Basophils % (Manual) 0 % (0-2) Band Neutrophils 0 % (0-8) Platelet Estimate Adequate Platelet Morphology Normal Macrocytosis 1+ Prothrombin Time 11.3 SEC (9.30-11.50) Prothromb Time International Ratio 1.1 (0.9-1.1) Sodium Level 140 mEQ/L (135-145) Potassium Level 4.3 mEQ/L (3.4-4.9) Chloride Level 100 mEQ/L (98-107) Carbon Dioxide Level 24 mEQ/L (20-30) Anion Gap 16 (5-15) H Blood Urea Nitrogen 18 mg/dL (7-23) Creatinine 1.2 mg/dL (0.5-0.9) H Estimat Glomerular Filtration Rate mL/min (>60) Glucose Level 97 mg/dL (74-106) Calcium Level 9.2 mg/dL (8.6-10.2) Total Bilirubin 0.7 mg/dL (0.0-1.2) Aspartate Amino Transf (AST/SGOT) 21 U/L (5-40) Alanine Aminotransferase (ALT/SGPT) 15 U/L (3-33) Alkaline Phosphatase 54 U/L (35-104) C-Reactive Protein, Quantitative < 0.3 mg/dL (< 0.5) Total Protein 6.4 g/dL (6.6-8.7) L Albumin 3.1 g/dL (3.5-5.2) L Globulin 3.3 g/dL Albumin/Globulin Ratio 0.9 (1.0-2.7) L Triglycerides Level 34 mg/dL (< 150) Cholesterol Level 99 mg/dL (< 200) LDL Cholesterol 48 mg/dL (60-99) L HDL Cholesterol 44 mg/dL (> 60) Cholesterol/HDL Ratio 2.3 (3.3-4.4) L Thyroid Stimulating Hormone (TSH) 0.943 uIU/mL (0.300-4.500) Current Medications Medications (Trade) Dose Ordered Sig/Amanda Route PRN Reason Start Time Stop Time Status Last Admin Dose Admin Acetaminophen (Tylenol) 650 mg Q4H PRN ORAL T>100.5 02/12/17 12:00 03/14/17 11:59 Albuterol/ Ipratropium (DuoNeb 0.5-3(2.5)mg/3ml) 3 ml Q4H PRN HHN Shortness of Breath 02/12/17 12:00 02/17/17 11:59 Amiodarone HCl (Cordarone) 100 mg DAILY ORAL 02/13/17 09:00 03/15/17 08:59 Aspirin (ASA) 162 mg DAILY ORAL 02/13/17 09:00 03/15/17 08:59 Diltiazem HCl (Cardizem) 10 mg EVERY HOUR PRN IV HR>120 02/12/17 16:00 03/14/17 15:59 Docusate Sodium (Colace) 100 mg THREE TIMES A DAY ORAL 02/12/17 18:00 03/14/17 17:59 02/12/17 17:45 Enalaprilat (Vasotec) 2.5 mg Q6H PRN IV sbp more than 160 02/12/17 12:00 03/14/17 11:59 Heparin Sodium/ Dextrose (Heparin) 500 ml @ 19.813 mls/ hr Q24H IV 02/13/17 02:15 03/15/17 02:14 02/13/17 02:53 Lactulose (Cephulac) 30 gm THREE TIMES A DAY ORAL 02/12/17 18:00 03/14/17 17:59 02/12/17 17:45 Mineral Oil (Fleet's Mineral Oil Enema) 133 ml EVERY OTHER DAY RECTAL 02/14/17 09:00 03/16/17 08:59 Morphine Sulfate (Morphine Sulfate) 2 mg Q4H PRN IVP Severe Pain (Pain Scale 7-10) 02/12/17 12:00 02/19/17 11:59 Nitroglycerin (Ntg) 0.4 mg Q5MIN X 3 DOSES PRN SL Prn Chest Pain 02/12/17 12:00 03/14/17 11:59 Ondansetron HCl (Zofran) 4 mg Q6H PRN IVP Nausea & Vomiting 02/12/17 12:00 03/14/17 11:59 02/12/17 16:06 Pantoprazole (Protonix) 40 mg DAILY ORAL 02/13/17 09:00 03/15/17 08:59 Polyethylene Glycol (Miralax) 17 gm BEDTIME ORAL 02/12/17 21:00 03/14/17 20:59 02/12/17 21:26 Polyethylene Glycol (Miralax) 17 gm DAILYPRN PRN ORAL Constipation 02/12/17 12:00 03/14/17 11:59 Sennosides 8.6 mg 8.6 mg DAILY ORAL 02/13/17 09:00 03/15/17 08:59 Temazepam (Restoril) 15 mg HSPRN PRN ORAL Insomnia 02/12/17 21:00 02/19/17 20:59 VIVI BOWLES M.D. February 13, 2017 11:23
[2017-02-13 12:02] VITALS: BP 129/87
--- NOTE | 2017-02-13 15:43 | GI Initial Consult Note ---
Claire Milton N.P. 02/13/17 1543: History of Present Illness General Date patient seen: February 13, 2017 Time patient seen: 13:00 Reason for Hospitalization: Abdominal Pain Referring physician: JAIME IVORY Reason for Consultation: ABDOMINAL PAIN Present Illness HPI The patient presents with left flank and left chest pain. It is a constant pain and also is intermittent quality to it. She rates it 7/10 and sharp. It' s not exertional. When he gets worse she's not doing anything differently. She denies any fevers, nausea, vomiting, diarrhea. She last moved her bowels yesterday and they were normal. The patient is on Elaquis. She states it's for her circulation. Denies DVT or PE. She's never had this pain before. GI CONSULT: HPI noted above. GI consulted for abdominal pain. Pt seen on floor, awake A&Ox4 NAD with no c/o of any abdominal pain. The patient states she is constipated, last BM x [address] reviewed unremarkable. Last colonoscopy x 3 years with hx of colonic polyps. Hx of stomach cancer per patient. Currently on heparin gtt r/o PE or DVT. Home Meds Active Scripts Amiodarone Hcl* (PACERONE*) 200 Mg Tablet, 100 MG ORAL DAILY for 30 Days, TAB Prov:JAIME IVORY 02/15/17 Reported Medications Doxycycline Hyclate (DOXYCYCLINE HYCLATE) 100 Mg Tablet, 100 MG PO TWICE A DAY for 3 Days, TAB 02/15/17 Acetaminophen* (TYLENOL EXTRA STRENGTH*) 500 Mg Tablet, 500 MG ORAL Q6H Y for Mild Pain/Temp > 100.5, TAB 0 Refills 02/12/17 Cyanocobalamin (Vitamin B-12) (VITAMIN B-12) 1,000 Mcg Tab.subl, 1000 MCG SL, TAB 02/12/17 Cholecalciferol (Vitamin D3)* (VITAMIN D*) 1,000 Unit Tablet, 5000 UNIT ORAL DAILY, #30 TAB 02/12/17 Apixaban (ELIQUIS) 5 Mg Tablet, 5 MG PO DAILY, TAB 02/12/17 Amiodarone Hcl* (AMIODARONE HCL*) 400 Mg Tablet, 200 MG ORAL EVERY 12 HOURS, TAB 02/12/17 Lovastatin (LOVASTATIN) 40 Mg Tablet, 40 MG ORAL BEDTIME, #30 TAB 0 Refills 02/12/17 Docusate Sodium* (DOCUSATE SODIUM*) 100 Mg Capsule, 100 MG ORAL DAILY, CAP 02/12/17 Ferrous Sulfate* (FERROUS SULFATE*) 325 Mg Tablet, 325 MG ORAL THREE TIMES A DAY , #90 TAB 0 Refills 02/12/17 Hydrochlorothiazide* (HYDROCHLOROTHIAZIDE*) 12.5 Mg Capsule, 12.5 MG ORAL DAILY , CAP 02/12/17 Med list reviewed/reconciled: Yes Allergies: Coded Allergies: Dried Fruit (Verified Allergy, Unknown, 02/12/17) all fruit PEANUT (Verified Allergy, Unknown, 02/12/17) Patient History History Provided By: Patient, Medical Record PMH Narrative Hx Hypertension: Yes Hx Cancer: Yes - STOMACH CA Social History: Denies: alcohol use, drug use, other, smoking Review of Systems All Other Systems: negative except mentioned in HPI Physical Exam Vital Signs Date Time Temp Pulse Resp B/P Pulse Ox O2 Delivery O2 Flow Rate FiO2 02/12/17 06:29 97.5 70 20 163/81 97 Room Air Sp02 EP Interpretation: reviewed Labs Laboratory Tests Test 02/12/17 15:50 02/13/17 00:20 02/13/17 08:30 White Blood Count 4.7 K/UL (4.8-10.8) L 2.8 K/UL (4.8-10.8) L Red Blood Count 3.50 M/UL (4.20-5.40) L 3.40 M/UL (4.20-5.40) L Hemoglobin 11.9 G/DL (12.0-16.0) L 11.4 G/DL (12.0-16.0) L Hematocrit 36.2 % (37.0-47.0) L 34.9 % (37.0-47.0) L Mean Corpuscular Volume 103 FL (80-99) H 103 FL (80-99) H Mean Corpuscular Hemoglobin 34.1 PG (27.0-31.0) H 33.6 PG (27.0-31.0) H Mean Corpuscular Hemoglobin Concent 33.0 G/DL (32.0-36.0) 32.7 G/DL (32.0-36.0) Red Cell Distribution Width 11.3 % (11.6-14.8) L 11.3 % (11.6-14.8) L Platelet Count 226 K/UL (150-450) 214 K/UL (150-450) Mean Platelet Volume 6.5 FL (6.5-10.1) 6.4 FL (6.5-10.1) L Neutrophils (%) (Auto) 75.5 % (45.0-75.0) H % (45.0-75.0) Lymphocytes (%) (Auto) 16.2 % (20.0-45.0) L % (20.0-45.0) Monocytes (%) (Auto) 6.9 % (1.0-10.0) % (1.0-10.0) Eosinophils (%) (Auto) 0.6 % (0.0-3.0) % (0.0-3.0) Basophils (%) (Auto) 0.8 % (0.0-2.0) % (0.0-2.0) Activated Partial Thromboplast Time 31 SEC (23-33) 177 SEC (23-33) *H 87 SEC (23-33) H Differential Total Cells Counted 100 Neutrophils % (Manual) 64 % (45-75) Lymphocytes % (Manual) 27 % (20-45) Monocytes % (Manual) 8 % (1-10) Eosinophils % (Manual) 1 % (0-3) Basophils % (Manual) 0 % (0-2) Band Neutrophils 0 % (0-8) Platelet Estimate Adequate Platelet Morphology Normal Macrocytosis 1+ Prothrombin Time 11.3 SEC (9.30-11.50) Prothromb Time International Ratio 1.1 (0.9-1.1) Sodium Level 140 mEQ/L (135-145) Potassium Level 4.3 mEQ/L (3.4-4.9) Chloride Level 100 mEQ/L (98-107) Carbon Dioxide Level 24 mEQ/L (20-30) Anion Gap 16 (5-15) H Blood Urea Nitrogen 18 mg/dL (7-23) Creatinine 1.2 mg/dL (0.5-0.9) H Estimat Glomerular Filtration Rate mL/min (>60) Glucose Level 97 mg/dL (74-106) Calcium Level 9.2 mg/dL (8.6-10.2) Total Bilirubin 0.7 mg/dL (0.0-1.2) Aspartate Amino Transf (AST/SGOT) 21 U/L (5-40) Alanine Aminotransferase (ALT/SGPT) 15 U/L (3-33) Alkaline Phosphatase 54 U/L (35-104) Troponin I < 0.30 ng/mL (<=0.30) C-Reactive Protein, Quantitative < 0.3 mg/dL (< 0.5) Total Protein 6.4 g/dL (6.6-8.7) L Albumin 3.1 g/dL (3.5-5.2) L Globulin 3.3 g/dL Albumin/Globulin Ratio 0.9 (1.0-2.7) L Triglycerides Level 34 mg/dL (< 150) Cholesterol Level 99 mg/dL (< 200) LDL Cholesterol 48 mg/dL (60-99) L HDL Cholesterol 44 mg/dL (> 60) Cholesterol/HDL Ratio 2.3 (3.3-4.4) L Thyroid Stimulating Hormone (TSH) 0.943 uIU/mL (0.300-4.500) General Appearance: well appearing, no apparent distress, alert Head: normocephalic EENT: normal ENT inspection Neck: supple Respiratory: normal breath sounds, no respiratory distress Cardiovascular: normal rate Gastrointestinal: normal inspection, non tender, soft Rectal: deferred Neurologic: alert, oriented x3, responsive Psychiatric: normal inspection, judgement/insight normal, memory normal Skin: normal inspection, normal color, no rash, warm/dry Lymphatic: normal inspection, no adenopathy Current Medications Current Medications Medications (Trade) Dose Ordered Sig/Amanda Route PRN Reason Start Time Stop Time Status Last Admin Dose Admin Acetaminophen (Tylenol) 650 mg Q4H PRN ORAL T>100.5 02/12/17 12:00 03/14/17 11:59 02/13/17 11:57 Albuterol/ Ipratropium (DuoNeb 0.5-3(2.5)mg/3ml) 3 ml Q4H PRN HHN Shortness of Breath 02/12/17 12:00 02/17/17 11:59 Amiodarone HCl (Cordarone) 100 mg DAILY ORAL 02/13/17 09:00 03/15/17 08:59 Aspirin (ASA) 162 mg DAILY ORAL 02/13/17 09:00 03/15/17 08:59 Diltiazem HCl (Cardizem) 10 mg EVERY HOUR PRN IV HR>120 02/12/17 16:00 03/14/17 15:59 Docusate Sodium (Colace) 100 mg THREE TIMES A DAY ORAL 02/12/17 18:00 03/14/17 17:59 02/13/17 13:27 Doxycycline Monohydrate (Vibramycin) 100 mg EVERY 12 HOURS ORAL 02/13/17 11:30 02/20/17 11:29 02/13/17 11:57 Enalaprilat (Vasotec) 2.5 mg Q6H PRN IV sbp more than 160 02/12/17 12:00 03/14/17 11:59 Heparin Sodium/ Dextrose (Heparin) 500 ml @ 19.813 mls/ hr Q24H IV 02/13/17 02:15 03/15/17 02:14 02/13/17 02:53 Lactulose (Cephulac) 30 gm THREE TIMES A DAY ORAL 02/12/17 18:00 03/14/17 17:59 02/13/17 13:27 Mineral Oil (Fleet's Mineral Oil Enema) 133 ml EVERY OTHER DAY RECTAL 02/14/17 09:00 03/16/17 08:59 Morphine Sulfate (Morphine Sulfate) 2 mg Q4H PRN IVP Severe Pain (Pain Scale 7-10) 02/12/17 12:00 02/19/17 11:59 Nitroglycerin (Ntg) 0.4 mg Q5MIN X 3 DOSES PRN SL Prn Chest Pain 02/12/17 12:00 03/14/17 11:59 Ondansetron HCl (Zofran) 4 mg Q6H PRN IVP Nausea & Vomiting 02/12/17 12:00 03/14/17 11:59 02/12/17 16:06 Pantoprazole (Protonix) 40 mg DAILY ORAL 02/13/17 09:00 03/15/17 08:59 Polyethylene Glycol (Miralax) 17 gm BEDTIME ORAL 02/12/17 21:00 03/14/17 20:59 02/12/17 21:26 Polyethylene Glycol (Miralax) 17 gm DAILYPRN PRN ORAL Constipation 02/12/17 12:00 03/14/17 11:59 Sennosides 8.6 mg 8.6 mg DAILY ORAL 02/13/17 09:00 03/15/17 08:59 Temazepam (Restoril) 15 mg HSPRN PRN ORAL Insomnia 02/12/17 21:00 02/19/17 20:59 GI: Plan Problems: (1) Anemia (2) Stomach cancer (3) Constipation (4) Cholecystitis Plan EGD scheduled for tomorrow given hx of stomach CA - NPO @ [facility]. - hold heparin GTT @ 0400 (min 6 hours prior procedure) cont bowel regime added dulcolax x 1 ppi fu labs Discussed with Dr. Cunningham. Thank you for referring this patient, we will follow. MIGUEL CUNNINGHAM 02/16/17 1328: History of Present Illness General Reason for Hospitalization: Abdominal Pain Present Illness Home Meds Active Scripts Amiodarone Hcl* (PACERONE*) 200 Mg Tablet, 100 MG ORAL DAILY for 30 Days, TAB Prov:JAIME IVORY 02/15/17 Reported Medications Doxycycline Hyclate (DOXYCYCLINE HYCLATE) 100 Mg Tablet, 100 MG PO TWICE A DAY for 3 Days, TAB 02/15/17 Acetaminophen* (TYLENOL EXTRA STRENGTH*) 500 Mg Tablet, 500 MG ORAL Q6H Y for Mild Pain/Temp > 100.5, TAB 0 Refills 02/12/17 Cyanocobalamin (Vitamin B-12) (VITAMIN B-12) 1,000 Mcg Tab.subl, 1000 MCG SL, TAB 02/12/17 Cholecalciferol (Vitamin D3)* (VITAMIN D*) 1,000 Unit Tablet, 5000 UNIT ORAL DAILY, #30 TAB 02/12/17 Apixaban (ELIQUIS) 5 Mg Tablet, 5 MG PO DAILY, TAB 02/12/17 Amiodarone Hcl* (AMIODARONE HCL*) 400 Mg Tablet, 200 MG ORAL EVERY 12 HOURS, TAB 02/12/17 Lovastatin (LOVASTATIN) 40 Mg Tablet, 40 MG ORAL BEDTIME, #30 TAB 0 Refills 02/12/17 Docusate Sodium* (DOCUSATE SODIUM*) 100 Mg Capsule, 100 MG ORAL DAILY, CAP 02/12/17 Ferrous Sulfate* (FERROUS SULFATE*) 325 Mg Tablet, 325 MG ORAL THREE TIMES A DAY , #90 TAB 0 Refills 02/12/17 Hydrochlorothiazide* (HYDROCHLOROTHIAZIDE*) 12.5 Mg Capsule, 12.5 MG ORAL DAILY , CAP 02/12/17 Allergies: Coded Allergies: Dried Fruit (Verified Allergy, Unknown, 02/12/17) all fruit PEANUT (Verified Allergy, Unknown, 02/12/17) GI: Plan Plan The patient was seen and examined at bedside and all new and available data was reviewed in the patients chart. I agree with the above findings, impression and plan. (Patient seen earlier today. Signature stamp does not reflect patient encounter time.). -Ruth Dee MDh Jean NImtiaz February 13, 2017 15:43 MIGUEL CUNNINGHAM Feb 16, 2017 13:28
[2017-02-13 16:00] VITALS: BP 101/63
--- NOTE | 2017-02-13 18:38 | Cardiology Progress Note ---
Assessment/Plan Assessment/Plan stomach cancer, treated in 2008 withsurgery, chemotherapy and radiation, history of paroxysmal atrial fibrillation and hypertension, left chest pain, ctpa neg ct of abd pelvis choelithiassi witha neg hida scan netta remain amiod dose decreased sicne admission Objective Last 24 Hour Vital Signs Date Time Temp Pulse Resp B/P Pulse Ox O2 Delivery O2 Flow Rate FiO2 02/13/17 16:00 97.7 57 18 101/63 96 Room Air 02/13/17 15:26 55 02/13/17 12:02 58 18 129/87 93 Room Air 02/13/17 11:33 56 02/13/17 08:00 67 02/13/17 08:00 97.4 57 18 93/55 96 Room Air 02/13/17 04:00 52 02/13/17 04:00 97.6 85 22 127/72 98 Room Air 02/13/17 00:00 97.4 52 19 104/60 98 Room Air 02/13/17 00:00 53 02/12/17 20:00 51 02/12/17 20:00 97.9 54 21 114/72 97 Room Air Intake and Output 02/12/17 02/13/17 19:00 07:00 Intake Total 2175.474 ml 239.314 ml Balance 2175.474 ml 239.314 ml Intake Oral 150 ml IV Total 2025.474 ml 239.314 ml # Voids 2 3 Laboratory Tests Test 02/13/17 00:20 02/13/17 08:30 Activated Partial Thromboplast Time 177 SEC (23-33) *H 87 SEC (23-33) H White Blood Count 2.8 K/UL (4.8-10.8) L Red Blood Count 3.40 M/UL (4.20-5.40) L Hemoglobin 11.4 G/DL (12.0-16.0) L Hematocrit 34.9 % (37.0-47.0) L Mean Corpuscular Volume 103 FL (80-99) H Mean Corpuscular Hemoglobin 33.6 PG (27.0-31.0) H Mean Corpuscular Hemoglobin Concent 32.7 G/DL (32.0-36.0) Red Cell Distribution Width 11.3 % (11.6-14.8) L Platelet Count 214 K/UL (150-450) Mean Platelet Volume 6.4 FL (6.5-10.1) L Neutrophils (%) (Auto) % (45.0-75.0) Lymphocytes (%) (Auto) % (20.0-45.0) Monocytes (%) (Auto) % (1.0-10.0) Eosinophils (%) (Auto) % (0.0-3.0) Basophils (%) (Auto) % (0.0-2.0) Differential Total Cells Counted 100 Neutrophils % (Manual) 64 % (45-75) Lymphocytes % (Manual) 27 % (20-45) Monocytes % (Manual) 8 % (1-10) Eosinophils % (Manual) 1 % (0-3) Basophils % (Manual) 0 % (0-2) Band Neutrophils 0 % (0-8) Platelet Estimate Adequate Platelet Morphology Normal Macrocytosis 1+ Prothrombin Time 11.3 SEC (9.30-11.50) Prothromb Time International Ratio 1.1 (0.9-1.1) Sodium Level 140 mEQ/L (135-145) Potassium Level 4.3 mEQ/L (3.4-4.9) Chloride Level 100 mEQ/L (98-107) Carbon Dioxide Level 24 mEQ/L (20-30) Anion Gap 16 (5-15) H Blood Urea Nitrogen 18 mg/dL (7-23) Creatinine 1.2 mg/dL (0.5-0.9) H Estimat Glomerular Filtration Rate mL/min (>60) Glucose Level 97 mg/dL (74-106) Calcium Level 9.2 mg/dL (8.6-10.2) Total Bilirubin 0.7 mg/dL (0.0-1.2) Aspartate Amino Transf (AST/SGOT) 21 U/L (5-40) Alanine Aminotransferase (ALT/SGPT) 15 U/L (3-33) Alkaline Phosphatase 54 U/L (35-104) Troponin I < 0.30 ng/mL (<=0.30) C-Reactive Protein, Quantitative < 0.3 mg/dL (< 0.5) Total Protein 6.4 g/dL (6.6-8.7) L Albumin 3.1 g/dL (3.5-5.2) L Globulin 3.3 g/dL Albumin/Globulin Ratio 0.9 (1.0-2.7) L Triglycerides Level 34 mg/dL (< 150) Cholesterol Level 99 mg/dL (< 200) LDL Cholesterol 48 mg/dL (60-99) L HDL Cholesterol 44 mg/dL (> 60) Cholesterol/HDL Ratio 2.3 (3.3-4.4) L Thyroid Stimulating Hormone (TSH) 0.943 uIU/mL (0.300-4.500) AUDREY FLORES February 13, 2017 18:38
--- NOTE | 2017-02-13 18:43 | Cardiology Progress Note ---
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 ajith chest pain atypical Subjective Cardiovascular: Denies: chest pain, irregular heart rate, lightheadedness, palpitations Respiratory: Denies: SOB with excertion, shortness of breath Gastrointestinal/Abdominal: Denies: abdominal pain, constipated - today had large bm Genitourinary: Denies: burning Objective Last 24 Hour Vital Signs Date Time Temp Pulse Resp B/P Pulse Ox O2 Delivery O2 Flow Rate FiO2 02/13/17 16:00 97.7 57 18 101/63 96 Room Air 02/13/17 15:26 55 02/13/17 12:02 58 18 129/87 93 Room Air 02/13/17 11:33 56 02/13/17 08:00 67 02/13/17 08:00 97.4 57 18 93/55 96 Room Air 02/13/17 04:00 52 02/13/17 04:00 97.6 85 22 127/72 98 Room Air 02/13/17 00:00 97.4 52 19 104/60 98 Room Air 02/13/17 00:00 53 02/12/17 20:00 51 02/12/17 20:00 97.9 54 21 114/72 97 Room Air General Appearance: no apparent distress, alert Neck: no JVD Cardiovascular: normal rate, regular rhythm Respiratory/Chest: lungs clear, normal breath sounds Abdomen: normal bowel sounds, non tender, soft Extremities: no swelling Intake and Output 02/12/17 02/13/17 19:00 07:00 Intake Total 2175.474 ml 239.314 ml Balance 2175.474 ml 239.314 ml Intake Oral 150 ml IV Total 2025.474 ml 239.314 ml # Voids 2 3 Laboratory Tests Test 02/13/17 00:20 02/13/17 08:30 Activated Partial Thromboplast Time 177 SEC (23-33) *H 87 SEC (23-33) H White Blood Count 2.8 K/UL (4.8-10.8) L Red Blood Count 3.40 M/UL (4.20-5.40) L Hemoglobin 11.4 G/DL (12.0-16.0) L Hematocrit 34.9 % (37.0-47.0) L Mean Corpuscular Volume 103 FL (80-99) H Mean Corpuscular Hemoglobin 33.6 PG (27.0-31.0) H Mean Corpuscular Hemoglobin Concent 32.7 G/DL (32.0-36.0) Red Cell Distribution Width 11.3 % (11.6-14.8) L Platelet Count 214 K/UL (150-450) Mean Platelet Volume 6.4 FL (6.5-10.1) L Neutrophils (%) (Auto) % (45.0-75.0) Lymphocytes (%) (Auto) % (20.0-45.0) Monocytes (%) (Auto) % (1.0-10.0) Eosinophils (%) (Auto) % (0.0-3.0) Basophils (%) (Auto) % (0.0-2.0) Differential Total Cells Counted 100 Neutrophils % (Manual) 64 % (45-75) Lymphocytes % (Manual) 27 % (20-45) Monocytes % (Manual) 8 % (1-10) Eosinophils % (Manual) 1 % (0-3) Basophils % (Manual) 0 % (0-2) Band Neutrophils 0 % (0-8) Platelet Estimate Adequate Platelet Morphology Normal Macrocytosis 1+ Prothrombin Time 11.3 SEC (9.30-11.50) Prothromb Time International Ratio 1.1 (0.9-1.1) Sodium Level 140 mEQ/L (135-145) Potassium Level 4.3 mEQ/L (3.4-4.9) Chloride Level 100 mEQ/L (98-107) Carbon Dioxide Level 24 mEQ/L (20-30) Anion Gap 16 (5-15) H Blood Urea Nitrogen 18 mg/dL (7-23) Creatinine 1.2 mg/dL (0.5-0.9) H Estimat Glomerular Filtration Rate mL/min (>60) Glucose Level 97 mg/dL (74-106) Calcium Level 9.2 mg/dL (8.6-10.2) Total Bilirubin 0.7 mg/dL (0.0-1.2) Aspartate Amino Transf (AST/SGOT) 21 U/L (5-40) Alanine Aminotransferase (ALT/SGPT) 15 U/L (3-33) Alkaline Phosphatase 54 U/L (35-104) Troponin I < 0.30 ng/mL (<=0.30) C-Reactive Protein, Quantitative < 0.3 mg/dL (< 0.5) Total Protein 6.4 g/dL (6.6-8.7) L Albumin 3.1 g/dL (3.5-5.2) L Globulin 3.3 g/dL Albumin/Globulin Ratio 0.9 (1.0-2.7) L Triglycerides Level 34 mg/dL (< 150) Cholesterol Level 99 mg/dL (< 200) LDL Cholesterol 48 mg/dL (60-99) L HDL Cholesterol 44 mg/dL (> 60) Cholesterol/HDL Ratio 2.3 (3.3-4.4) L Thyroid Stimulating Hormone (TSH) 0.943 uIU/mL (0.300-4.500) AUDREY FLORES February 13, 2017 18:43
[2017-02-13 20:00] VITALS: BP 115/67
[2017-02-13] MEDS: Miralax 17gm pkt ORAL SCH ×3 (20:17→22:20)
[2017-02-14] VITALS (10 sets, daily range): BP systolic 115–157; BP diastolic 54–83
[2017-02-14 06:31] LABS: ANION GAP 11 (5-15); CALCIUM 9.6 mg/dL (8.6-10.2); CARBON DIOXIDE 29 mEQ/L (20-30); CHLORIDE 103 mEQ/L (98-107); CREATININE 1.2 mg/dL (0.5-0.9); HEMOLYSIS 3; POTASSIUM 4.7 mEQ/L (3.4-4.9); SODIUM 143 mEQ/L (135-145)
[2017-02-14 06:32] LABS: TROPONIN I < 0.30 ng/mL (<=0.30)
[2017-02-14 06:33] LABS: INR 1.1 (0.9-1.1); PROTHROMBIN TIME 10.7 SEC (9.30-11.50)
[2017-02-14] MEDS: Lactulose 20gm/30ml UDC ORAL SCH ×2 (08:59→12:37)
[2017-02-14] MEDS: Fleet's Mineral Oil Enema RECTAL SCH ×2 (09:00→09:03)
[2017-02-14] MEDS: Amiodarone 200mg tab ORAL SCH (09:01)
[2017-02-14] MEDS: Aspirin Baby 81mg ORAL SCH (09:01)
[2017-02-14] MEDS: Docusate 100mg cap ORAL SCH ×2 (09:01→12:37)
[2017-02-14] MEDS ORDERED: NS 550ML IV ONE ×2 (11:00)
[2017-02-14] MEDS ORDERED: Propofol 10mg/ml 20ml IV ONE (11:00)
--- NOTE | 2017-02-14 11:01 | Pre-Procedure Note/Attestation ---
Pre-Procedure Note/Attestation Complete Prior to Procedure Planned Procedure: not applicable Procedure Narrative: egd Indications for Procedure Pre-Operative Diagnosis: abd pain Attestation I attest that I discussed the nature of the procedure; its benefits; risks and complications; and alternatives (and the risks and benefits of such alternatives ), prior to the procedure, with the patient (or the patient's legal it sales representative). I attest that, if there was a reasonable possibility of needing a blood transfusion, the patient (or the patient's legal it sales representative) was given the [facility] standardized written summary, pursuant to the Gilberto [place] Blood Safety Act ([place] Health and Safety Code # 1645, as amended). I attest that I re-evaluated the patient just prior to the surgery and that there has been no change in the patient's H&P, except as documented below: MIGUEL CUNNINGHAM February 14, 2017 11:01
--- NOTE | 2017-02-14 11:01 | Pulmonology Progress Note ---
Assessment/Plan Problems: (1) ACS (acute coronary syndrome) (2) Paroxysmal a-fib (3) Cholecystitis (4) Constipation Assessment/Plan still netta npo for endoscopy f/u cardio evaluation, amiodarone dose was decreased had large bm yesterday keep in teli until cleared by cardio Subjective ROS Limited/Unobtainable: No Interval Events: for EGd today Allergies: Coded Allergies: Dried Fruit (Verified Allergy, Unknown, 02/12/17) all fruit PEANUT (Verified Allergy, Unknown, 02/12/17) Objective Last 24 Hour Vital Signs Date Time Temp Pulse Resp B/P Pulse Ox O2 Delivery O2 Flow Rate FiO2 02/14/17 08:01 97.5 52 18 133/64 100 Room Air 02/14/17 04:01 97.7 51 19 115/54 95 Room Air 02/14/17 04:00 50 02/14/17 00:00 97.7 50 18 127/69 97 Room Air 02/14/17 00:00 48 02/13/17 20:00 97.7 61 18 115/67 98 Room Air 02/13/17 20:00 62 02/13/17 16:00 97.7 57 18 101/63 96 Room Air 02/13/17 15:26 55 02/13/17 12:02 58 18 129/87 93 Room Air 02/13/17 11:33 56 Intake and Output 02/13/17 02/14/17 19:00 07:00 Intake Total 457.943 ml 308.271 ml Balance 457.943 ml 308.271 ml Intake Oral 240 ml 120 ml IV Total 217.943 ml 188.271 ml # Voids 2 # Bowel Movements 2 General Appearance: WD/WN HEENT: normocephalic, atraumatic Respiratory/Chest: chest wall non-tender, lungs clear Cardiovascular: normal peripheral pulses, normal rate Abdomen: normal bowel sounds, soft, non tender Skin: no rash Neurologic/Psychiatric: bean picker II-XII grossly normal, no motor/sensory deficits Lymphatic: no neck adenopathy Musculoskeletal: normal muscle bulk Laboratory Tests 02/14/17 05:30: Prothrombin Time 10.7, Prothromb Time International Ratio 1.1, Activated Partial Thromboplast Time 46H, Sodium Level 143, Potassium Level 4.7, Chloride Level 103, Carbon Dioxide Level 29, Anion Gap 11, Blood Urea Nitrogen 19, Creatinine 1.2H, Estimat Glomerular Filtration Rate , Glucose Level 102, Calcium Level 9.6, Troponin I < 0.30 Current Medications Medications (Trade) Dose Ordered Sig/Amanda Route PRN Reason Start Time Stop Time Status Last Admin Dose Admin Acetaminophen (Tylenol) 650 mg Q4H PRN ORAL T>100.5 02/12/17 12:00 03/14/17 11:59 02/13/17 20:14 Albuterol/ Ipratropium (DuoNeb 0.5-3(2.5)mg/3ml) 3 ml Q4H PRN HHN Shortness of Breath 02/12/17 12:00 02/17/17 11:59 Amiodarone HCl (Cordarone) 100 mg DAILY ORAL 02/13/17 09:00 03/15/17 08:59 02/14/17 09:01 Aspirin (ASA) 162 mg DAILY ORAL 02/13/17 09:00 03/15/17 08:59 02/14/17 09:01 Diltiazem HCl (Cardizem) 10 mg EVERY HOUR PRN IV HR>120 02/12/17 16:00 03/14/17 15:59 Docusate Sodium (Colace) 100 mg THREE TIMES A DAY ORAL 02/12/17 18:00 03/14/17 17:59 02/14/17 09:01 Doxycycline Monohydrate (Vibramycin) 100 mg EVERY 12 HOURS ORAL 02/13/17 11:30 02/20/17 11:29 02/14/17 09:01 Enalaprilat (Vasotec) 2.5 mg Q6H PRN IV sbp more than 160 02/12/17 12:00 03/14/17 11:59 Heparin Sodium/ Dextrose (Heparin) 500 ml @ 19.813 mls/ hr Q24H IV 02/13/17 02:15 03/15/17 02:14 02/13/17 18:28 Lactulose (Cephulac) 30 gm THREE TIMES A DAY ORAL 02/12/17 18:00 03/14/17 17:59 02/14/17 08:59 Mineral Oil (Fleet's Mineral Oil Enema) 133 ml EVERY OTHER DAY RECTAL 02/14/17 09:00 03/16/17 08:59 Morphine Sulfate (Morphine Sulfate) 2 mg Q4H PRN IVP Severe Pain (Pain Scale 7-10) 02/12/17 12:00 02/19/17 11:59 Nitroglycerin (Ntg) 0.4 mg Q5MIN X 3 DOSES PRN SL Prn Chest Pain 02/12/17 12:00 03/14/17 11:59 Ondansetron HCl (Zofran) 4 mg Q6H PRN IVP Nausea & Vomiting 02/12/17 12:00 03/14/17 11:59 02/12/17 16:06 Pantoprazole (Protonix) 40 mg DAILY ORAL 02/13/17 09:00 03/15/17 08:59 02/14/17 10:19 Polyethylene Glycol (Miralax) 17 gm BEDTIME ORAL 02/12/17 21:00 03/14/17 20:59 02/13/17 22:20 Polyethylene Glycol (Miralax) 17 gm DAILYPRN PRN ORAL Constipation 02/12/17 12:00 03/14/17 11:59 Sennosides 8.6 mg 8.6 mg DAILY ORAL 02/13/17 09:00 03/15/17 08:59 02/14/17 09:01 Temazepam (Restoril) 15 mg HSPRN PRN ORAL Insomnia 02/12/17 21:00 02/19/17 20:59 JAIME IVORY February 14, 2017 11:01
--- NOTE | 2017-02-14 11:02 | Cardiology Report ---
APPROVED REPORT EKG Measurement Heart [id number] MT 140P [id number] Ectopic atrial rhythm Septal infarct, age undetermined Abnormal ECG
--- NOTE | 2017-02-14 11:22 | Immediate Post-Op Evaluation ---
Immediate Post-Op Evalulation Immediate Post-Op Evalulation Procedure: EGD Date of Evaluation: February 14, 2017 Time of Evaluation: 11:40 IV Fluids: 275 Blood Pressure Systolic: 150 Blood Pressure Diastolic: 76 Pulse Rate: 52 Respiratory Rate: 16 O2 Sat by Pulse Oximetry: 100 Temperature (Fahrenheit): 97.9 Pain Score (1-10): 0 Nausea: No Vomiting: No Complications No [id number] Patient Status: awake, patent, none Hydration Status: adequate Drug: None BLAKE VELIZ M.D. February 14, 2017 11:22
--- NOTE | 2017-02-14 11:22 | Anethesia Preoperative Eval ---
Anesthesia Pre-op PMH/ROS General Date of Evaluation: February 14, 2017 Time of Evaluation: 11:07 Anesthesiologist: Juan Carlos ASA Score: ASA 3 Mallampati Score Class I : Soft palate, uvula, fauces, pillars visible Class II: Soft palate, uvula, fauces visible Class III: Soft palate, base of uvula visible Class IV: Only hard plate visible Mallampati Classification: Class II Surgeon: Elsa Diagnosis: Abdominal pain Surgical Procedure: EGD Allergies: Coded Allergies: Dried Fruit (Verified Allergy, Unknown, 02/12/17) all fruit PEANUT (Verified Allergy, Unknown, 02/12/17) Medications: see eMAR Past Medical History Cardiovascular: Reports: HTN, arrhythmia - Afib, Denies: CAD, AL, other, valve dz Pulmonary: Denies: COPD, JOSE RAMON, asthma, other Gastrointestinal/Genitourinary: Reports: other - Stomach CA, Denies: CRI, ESRD, GERD Neurologic/Psychiatric: Denies: CVA, TIA, dementia, depression/anxiety, other Endocrine: Denies: DM, hypothyroidism, other, steroids HEENT: Denies: [place] (L), [place] (R), cataract (L), cataract (R), glaucoma, other Hematology/Immune: Denies: DVT, anemia, bleeding disorder, other Musculoskeletal/Integumentary: Denies: DDD, DJD, OA, RA, edema, other PMH Narrative: HTN, Afib, stomach CA PSxH Narrative: Stomach CA Anesthesia Pre-op Phys. Exam Physician Exam Last Vital Signs Date Time Temp Pulse Resp B/P Pulse Ox O2 Delivery O2 Flow Rate FiO2 02/14/17 08:01 97.5 52 18 133/64 100 Room Air Constitutional: NAD Neurologic: CN 2-12 intact Cardiovascular: RRR, no M/R/G Respiratory: CTA Gastrointestinal: S/NT/ND Airway Exam Mallampati Score: Class II MO: full ROM: full Dentures: lower, upper Anesthesia Pre-op A/P Labs Coagulation Test 02/14/17 05:30 Prothrombin Time 10.7 SEC (9.30-11.50) Prothromb Time International Ratio 1.1 (0.9-1.1) Activated Partial Thromboplast Time 46 SEC (23-33) H Chemistry Test 02/14/17 05:30 Sodium Level 143 mEQ/L (135-145) Potassium Level 4.7 mEQ/L (3.4-4.9) Chloride Level 103 mEQ/L (98-107) Carbon Dioxide Level 29 mEQ/L (20-30) Anion Gap 11 (5-15) Blood Urea Nitrogen 19 mg/dL (7-23) Creatinine 1.2 mg/dL (0.5-0.9) H Estimat Glomerular Filtration Rate mL/min (>60) Glucose Level 102 mg/dL (74-106) Calcium Level 9.6 mg/dL (8.6-10.2) Troponin I < 0.30 ng/mL (<=0.30) Carcinoembryonic Antigen Pending Risk Assessment & Plan Assessment: Stomach CA Plan: GA, TIVA Status Change Before Surgery: No Pre-Antibiotics Drug: None BLAKE VELIZ M.D. February 14, 2017 11:22
--- NOTE | 2017-02-14 11:24 | Endoscopy Procedure Note ---
Endoscopy Procedure Note Indication for Procedure: gastric cancer history Procedures Performed: EGD Operative Findings/Diagnosis: gastritis Specimen: yes Pt Tolerated Procedure Well: Yes Estimated Blood Loss: none Anesthesiologist: eden Anesthesia: MAC Implant(s) used?: No 50 yrs or older w/o bx or poly: Not Applicable 10yrs. F/U not recommended: Not Applicable MIGUEL CUNNINGHAM February 14, 2017 11:24
[2017-02-14] MEDS ORDERED: fentaNYL 100 mcg/2 mL IV PRN (11:30)
[2017-02-14] MEDS ORDERED: Heparin 5000 units/ml inj IV ONE (12:30)
[2017-02-14] MEDS: Heparin 25,000u/D5W 500ml (VTE/AF) IV SCH ×2 (12:46→19:39)
--- NOTE | 2017-02-14 19:22 | Infectious Diseases Prog Note ---
Assessment/Plan Assessment/Plan A: The patient is an 81-year-old female US : holelithiasis and mild distention of gallbladder , but clinically no evid of cholecystitis ( no RUQ pain ) HIDA : No evidence of cystic duct or common bile duct obstruction. CT of chest, no evidence of PE SP EGD 02/14 Paroxysmal atrial fibrillation Gastric cancer SP left chest pain and left arm pain. , CE x 3 : neg HTN PLAN: Doxy day # 2 /5 Monitor CBC Monitor BMP cardio is following LExt Doppler Subjective Constitutional: Denies: anorexia, chills, drenching sweats, fatigue, fever, no symptoms, other Allergies: Coded Allergies: Dried Fruit (Verified Allergy, Unknown, 02/12/17) all fruit PEANUT (Verified Allergy, Unknown, 02/12/17) Subjective afebrile Objective Vital Signs Last 24 Hour Vital Signs Date Time Temp Pulse Resp B/P Pulse Ox O2 Delivery O2 Flow Rate FiO2 02/14/17 16:00 57 02/14/17 15:16 97.9 63 18 121/76 100 Room Air 02/14/17 12:35 97.9 59 18 120/66 100 Room Air 02/14/17 12:00 51 02/14/17 11:55 97.9 52 16 157/83 95 Room Air 02/14/17 11:40 51 17 143/82 96 Room Air 02/14/17 11:37 52 16 100 02/14/17 11:35 50 18 140/77 100 Simple Mask 6.0 02/14/17 11:30 97.9 52 15 140/76 100 Simple Mask 6.0 02/14/17 08:01 97.5 52 18 133/64 100 Room Air 02/14/17 08:00 50 02/14/17 04:01 97.7 51 19 115/54 95 Room Air 02/14/17 04:00 50 02/14/17 00:00 97.7 50 18 127/69 97 Room Air 02/14/17 00:00 48 02/13/17 20:00 97.7 61 18 115/67 98 Room Air 02/13/17 20:00 62 Height (Feet): 5 Height (Inches): 7.00 Weight (Pounds): 156 HEENT: anicteric Respiratory/Chest: lungs clear Cardiovascular: regular rhythm Abdomen: normal bowel sounds Laboratory Tests Test 02/14/17 05:30 02/14/17 18:50 Prothrombin Time 10.7 SEC (9.30-11.50) Prothromb Time International Ratio 1.1 (0.9-1.1) Activated Partial Thromboplast Time 46 SEC (23-33) H 100 SEC (23-33) H Sodium Level 143 mEQ/L (135-145) Potassium Level 4.7 mEQ/L (3.4-4.9) Chloride Level 103 mEQ/L (98-107) Carbon Dioxide Level 29 mEQ/L (20-30) Anion Gap 11 (5-15) Blood Urea Nitrogen 19 mg/dL (7-23) Creatinine 1.2 mg/dL (0.5-0.9) H Estimat Glomerular Filtration Rate mL/min (>60) Glucose Level 102 mg/dL (74-106) Calcium Level 9.6 mg/dL (8.6-10.2) Troponin I < 0.30 ng/mL (<=0.30) Carcinoembryonic Antigen 2.9 ng/mL Current Medications Medications (Trade) Dose Ordered Sig/Amanda Route PRN Reason Start Time Stop Time Status Last Admin Dose Admin Acetaminophen (Tylenol) 650 mg Q4H PRN ORAL T>100.5 02/12/17 12:00 03/14/17 11:59 02/13/17 20:14 Albuterol/ Ipratropium (DuoNeb 0.5-3(2.5)mg/3ml) 3 ml Q4H PRN HHN Shortness of Breath 02/12/17 12:00 02/17/17 11:59 Amiodarone HCl 100 mg 100 mg DAILY ORAL 02/13/17 09:00 03/15/17 08:59 02/14/17 09:01 Aspirin (ASA) 162 mg DAILY ORAL 02/13/17 09:00 03/15/17 08:59 02/14/17 09:01 Diltiazem HCl (Cardizem) 10 mg EVERY HOUR PRN IV HR>120 02/12/17 16:00 03/14/17 15:59 Doxycycline Monohydrate (Vibramycin) 100 mg EVERY 12 HOURS ORAL 02/13/17 11:30 02/20/17 11:29 02/14/17 09:01 Enalaprilat (Vasotec) 2.5 mg Q6H PRN IV sbp more than 160 02/12/17 12:00 03/14/17 11:59 Heparin Sodium/ Dextrose (Heparin) 500 ml @ 19.813 mls/ hr Q24H IV 02/13/17 02:15 03/15/17 02:14 02/14/17 12:46 Morphine Sulfate (Morphine Sulfate) 2 mg Q4H PRN IVP Severe Pain (Pain Scale 7-10) 02/12/17 12:00 02/19/17 11:59 Nitroglycerin (Ntg) 0.4 mg Q5MIN X 3 DOSES PRN SL Prn Chest Pain 02/12/17 12:00 03/14/17 11:59 Ondansetron HCl (Zofran) 4 mg Q6H PRN IVP Nausea & Vomiting 02/12/17 12:00 03/14/17 11:59 02/12/17 16:06 Pantoprazole (Protonix) 40 mg DAILY ORAL 02/13/17 09:00 03/15/17 08:59 02/14/17 10:19 Polyethylene Glycol (Miralax) 17 gm DAILYPRN PRN ORAL Constipation 02/12/17 12:00 03/14/17 11:59 Temazepam (Restoril) 15 mg HSPRN PRN ORAL Insomnia 02/12/17 21:00 02/19/17 20:59 VIVI BOWLES M.D. February 14, 2017 19:22
--- NOTE | 2017-02-14 20:28 | Cardiology Progress Note ---
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 ajith chest pain atypical dc tele Subjective Cardiovascular: Denies: chest pain, lightheadedness, palpitations Respiratory: Denies: shortness of breath Gastrointestinal/Abdominal: Reports: diarrhea, Denies: abdominal pain Genitourinary: Denies: burning Objective Last 24 Hour Vital Signs Date Time Temp Pulse Resp B/P Pulse Ox O2 Delivery O2 Flow Rate FiO2 02/14/17 20:00 97.9 57 21 143/79 97 Room Air 02/14/17 19:33 60 16 Room Air 02/14/17 16:00 57 02/14/17 15:16 97.9 63 18 121/76 100 Room Air 02/14/17 12:35 97.9 59 18 120/66 100 Room Air 02/14/17 12:00 51 02/14/17 11:55 97.9 52 16 157/83 95 Room Air 02/14/17 11:40 51 17 143/82 96 Room Air 02/14/17 11:37 52 16 100 02/14/17 11:35 50 18 140/77 100 Simple Mask 6.0 02/14/17 11:30 97.9 52 15 140/76 100 Simple Mask 6.0 02/14/17 08:01 97.5 52 18 133/64 100 Room Air 02/14/17 08:00 50 02/14/17 04:01 97.7 51 19 115/54 95 Room Air 02/14/17 04:00 50 02/14/17 00:00 97.7 50 18 127/69 97 Room Air 02/14/17 00:00 48 General Appearance: no apparent distress, alert Neck: no JVD Cardiovascular: normal rate, regular rhythm Respiratory/Chest: chest wall non-tender, lungs clear Abdomen: normal bowel sounds, non tender, soft Extremities: no swelling Intake and Output 02/13/17 02/14/17 19:00 07:00 Intake Total 457.943 ml 308.271 ml Balance 457.943 ml 308.271 ml Intake Oral 240 ml 120 ml IV Total 217.943 ml 188.271 ml # Voids 2 # Bowel Movements 2 Laboratory Tests Test 02/14/17 05:30 02/14/17 18:50 Prothrombin Time 10.7 SEC (9.30-11.50) Prothromb Time International Ratio 1.1 (0.9-1.1) Activated Partial Thromboplast Time 46 SEC (23-33) H 100 SEC (23-33) H Sodium Level 143 mEQ/L (135-145) Potassium Level 4.7 mEQ/L (3.4-4.9) Chloride Level 103 mEQ/L (98-107) Carbon Dioxide Level 29 mEQ/L (20-30) Anion Gap 11 (5-15) Blood Urea Nitrogen 19 mg/dL (7-23) Creatinine 1.2 mg/dL (0.5-0.9) H Estimat Glomerular Filtration Rate mL/min (>60) Glucose Level 102 mg/dL (74-106) Calcium Level 9.6 mg/dL (8.6-10.2) Troponin I < 0.30 ng/mL (<=0.30) Carcinoembryonic Antigen 2.9 ng/mL AUDREY FLORES February 14, 2017 20:28
--- NOTE | 2017-02-14 23:00 | Procedure Note ---
DATE OF PROCEDURE: 02/13/2017 SURGEON: Akil Hunter M.D. PROCEDURE: Upper endoscopy with biopsy. ANESTHESIOLOGIST: Gilberto Rangel M.D. INSTRUMENT: Olympus adult flexible upper endoscope. INDICATION: History of gastric cancer. REASON FOR PROCEDURE: The procedure, risks, benefits, and possible consequences, including hemorrhage, aspiration, perforation and infection, and alternative treatments, were explained to the patient/legal guardian by Dr. Akil Hunter and the patient/legal guardian understood and accepted these risks. DESCRIPTION OF PROCEDURE: After informed consent was obtained and the patient was adequately sedated, Olympus upper endoscope was advanced from mouth into the esophagus. GE junction was spot about 40 cm from the incisors. At GE junction, there was a small gastric pouch. There was an anastomosis with most probably gastrojejunostomy. There was some inflammation and some inflammatory growth at the anastomosis, which was biopsied. The scope was advanced . The patient tolerated the procedure very well without any complication. SUMMARY FINDINGS: 1. Status post almost subtotal gastrectomy with a small partial left. 2. Some inflammation and redness at the anastomosis status post biopsy. RECOMMENDATIONS: Follow up biopsies and treat accordingly. I want to thank, Dr. Barreto, for this kind referral. Akil Hunter M.D. DR: JENNIFER JOB#: [id number] CC: Renea Barreto M.D.; Fax#: [phone]
[2017-02-15] VITALS: BP 114/65
[2017-02-15 02:00] LABS: MEAN CORPUSCULAR HEMOGLOBIN 34.5 PG (27.0-31.0); MEAN CORPUSCULAR HGB CONC 33.5 G/DL (32.0-36.0); MEAN CORPUSCULAR VOLUME 103 FL (80-99); MEAN PLATELET VOLUME 6.4 FL (6.5-10.1); PLATELET COUNT 190 K/UL (150-450); RED CELL DISTRIBUTION WIDTH 11.6 % (11.6-14.8); WHITE BLOOD COUNT 3.4 K/UL (4.8-10.8)
[2017-02-15 02:15] LABS: ANION GAP 13 (5-15); CALCIUM 8.8 mg/dL (8.6-10.2); CARBON DIOXIDE 24 mEQ/L (20-30); CHLORIDE 102 mEQ/L (98-107); HEMOLYSIS 6; POTASSIUM 3.6 mEQ/L (3.4-4.9); SODIUM 139 mEQ/L (135-145)
[2017-02-15 04:00] VITALS: BP 101/54
[2017-02-15] MEDS: Heparin 25,000u/D5W 500ml (VTE/AF) IV SCH (06:01)
[2017-02-15 08:00] VITALS: BP 100/54
[2017-02-15] MEDS: Aspirin Baby 81mg ORAL SCH (08:30)
[2017-02-15] MEDS: Amiodarone 200mg tab ORAL SCH (08:30)
--- NOTE | 2017-02-15 09:32 | GI Progress Note ---
Assessment/Plan Problems: (1) Abdominal pain ICD Codes: R10.9 - Unspecified abdominal pain SNOMED: 51263201 Qualifiers: Qualified Codes: R10.12 - Left upper quadrant pain (2) Stomach cancer ICD Codes: C16.9 - Malignant neoplasm of stomach, unspecified SNOMED: 090030199 (3) Anemia ICD Codes: D64.9 - Anemia, unspecified SNOMED: 875971181 (4) Constipation ICD Codes: K59.00 - Constipation, unspecified SNOMED: 11355783 Status: stable Status Narrative Discussed with Dr. Hunter. Assessment/Plan SUMMARY FINDINGS: 1. Status post almost subtotal gastrectomy with a small partial left. 2. Some inflammation and redness at the anastomosis status postbiopsy. RECOMMENDATIONS: ok for DC per GI standpoint cardiac diet, tolerating bowel regime ppi fu labs fu biopsies Subjective Gastrointestinal/Abdominal: Reports: no symptoms Objective Last 24 Hour Vital Signs Date Time Temp Pulse Resp B/P Pulse Ox O2 Delivery O2 Flow Rate FiO2 02/15/17 08:00 68 02/15/17 08:00 96.9 68 18 100/54 98 Room Air 02/15/17 07:42 72 18 Room Air 02/15/17 04:00 97.9 46 19 101/54 96 Room Air 02/15/17 04:00 48 02/15/17 00:00 50 02/15/17 00:00 97.9 51 20 114/65 97 Room Air 02/14/17 20:00 48 02/14/17 20:00 97.9 57 21 143/79 97 Room Air 02/14/17 19:33 60 16 Room Air 02/14/17 16:00 57 02/14/17 15:16 97.9 63 18 121/76 100 Room Air 02/14/17 12:35 97.9 59 18 120/66 100 Room Air 02/14/17 12:00 51 02/14/17 11:55 97.9 52 16 157/83 95 Room Air 02/14/17 11:40 51 17 143/82 96 Room Air 02/14/17 11:37 52 16 100 02/14/17 11:35 50 18 140/77 100 Simple Mask 6.0 02/14/17 11:30 97.9 52 15 140/76 100 Simple Mask 6.0 Intake and Output 02/14/17 02/15/17 19:00 07:00 Intake Total 1098.878 ml 192.68 ml Output Total 250 ml Balance 848.878 ml 192.68 ml Intake Oral 630 ml IV Total 468.878 ml 192.68 ml Output Urine Total 250 ml # Voids 2 4 # Bowel Movements 3 1 Laboratory Tests Test 02/14/17 18:50 02/15/17 01:45 Activated Partial Thromboplast Time 100 SEC (23-33) H 70 SEC (23-33) H White Blood Count 3.4 K/UL (4.8-10.8) L Red Blood Count 3.10 M/UL (4.20-5.40) L Hemoglobin 10.7 G/DL (12.0-16.0) L Hematocrit 31.9 % (37.0-47.0) L Mean Corpuscular Volume 103 FL (80-99) H Mean Corpuscular Hemoglobin 34.5 PG (27.0-31.0) H Mean Corpuscular Hemoglobin Concent 33.5 G/DL (32.0-36.0) Red Cell Distribution Width 11.6 % (11.6-14.8) Platelet Count 190 K/UL (150-450) Mean Platelet Volume 6.4 FL (6.5-10.1) L Neutrophils (%) (Auto) % (45.0-75.0) Lymphocytes (%) (Auto) % (20.0-45.0) Monocytes (%) (Auto) % (1.0-10.0) Eosinophils (%) (Auto) % (0.0-3.0) Basophils (%) (Auto) % (0.0-2.0) Sodium Level 139 mEQ/L (135-145) Potassium Level 3.6 mEQ/L (3.4-4.9) Chloride Level 102 mEQ/L (98-107) Carbon Dioxide Level 24 mEQ/L (20-30) Anion Gap 13 (5-15) Blood Urea Nitrogen 16 mg/dL (7-23) Creatinine 1.0 mg/dL (0.5-0.9) H Estimat Glomerular Filtration Rate mL/min (>60) Glucose Level 99 mg/dL (74-106) Calcium Level 8.8 mg/dL (8.6-10.2) Height (Feet): 5 Height (Inches): 7.00 Weight (Pounds): 156 General Appearance: no apparent distress, alert Cardiovascular: normal rate Respiratory/Chest: normal breath sounds, no respiratory distress Abdominal Exam: normal bowel sounds, non tender, soft Claire Milton N.P. Feb 15, 2017 09:32
--- NOTE | 2017-02-15 09:55 | Infectious Diseases Prog Note ---
Assessment/Plan Assessment/Plan A: The patient is an 81-year-old female US : holelithiasis and mild distention of gallbladder , but clinically no evid of cholecystitis ( no RUQ pain ) HIDA : No evidence of cystic duct or common bile duct obstruction. Bronchitis , cough has improved CT of chest, no evidence of PE SP EGD 02/14 : gastritis Paroxysmal atrial fibrillation Gastric cancer SP left chest pain and left arm pain. , CE x 3 : neg HTN PLAN: Doxy day # 3 / , ok to DC w cont of Doxy as out pt ( Rx as out pt ) Monitor CBC Monitor BMP cardio is following LExt Doppler Subjective Constitutional: Denies: anorexia, chills, drenching sweats, fatigue, fever, no symptoms, other Allergies: Coded Allergies: Dried Fruit (Verified Allergy, Unknown, 02/12/17) all fruit PEANUT (Verified Allergy, Unknown, 02/12/17) Subjective afebrile Objective Vital Signs Last 24 Hour Vital Signs Date Time Temp Pulse Resp B/P Pulse Ox O2 Delivery O2 Flow Rate FiO2 02/15/17 08:00 68 02/15/17 08:00 96.9 68 18 100/54 98 Room Air 02/15/17 07:42 72 18 Room Air 02/15/17 04:00 97.9 46 19 101/54 96 Room Air 02/15/17 04:00 48 02/15/17 00:00 50 02/15/17 00:00 97.9 51 20 114/65 97 Room Air 02/14/17 20:00 48 02/14/17 20:00 97.9 57 21 143/79 97 Room Air 02/14/17 19:33 60 16 Room Air 02/14/17 16:00 57 02/14/17 15:16 97.9 63 18 121/76 100 Room Air 02/14/17 12:35 97.9 59 18 120/66 100 Room Air 02/14/17 12:00 51 02/14/17 11:55 97.9 52 16 157/83 95 Room Air 02/14/17 11:40 51 17 143/82 96 Room Air 02/14/17 11:37 52 16 100 02/14/17 11:35 50 18 140/77 100 Simple Mask 6.0 02/14/17 11:30 97.9 52 15 140/76 100 Simple Mask 6.0 Height (Feet): 5 Height (Inches): 7.00 Weight (Pounds): 156 HEENT: anicteric Respiratory/Chest: normal breath sounds Cardiovascular: normal rate Abdomen: no organomegaly Laboratory Tests Test 02/14/17 18:50 02/15/17 01:45 Activated Partial Thromboplast Time 100 SEC (23-33) H 70 SEC (23-33) H White Blood Count 3.4 K/UL (4.8-10.8) L Red Blood Count 3.10 M/UL (4.20-5.40) L Hemoglobin 10.7 G/DL (12.0-16.0) L Hematocrit 31.9 % (37.0-47.0) L Mean Corpuscular Volume 103 FL (80-99) H Mean Corpuscular Hemoglobin 34.5 PG (27.0-31.0) H Mean Corpuscular Hemoglobin Concent 33.5 G/DL (32.0-36.0) Red Cell Distribution Width 11.6 % (11.6-14.8) Platelet Count 190 K/UL (150-450) Mean Platelet Volume 6.4 FL (6.5-10.1) L Neutrophils (%) (Auto) % (45.0-75.0) Lymphocytes (%) (Auto) % (20.0-45.0) Monocytes (%) (Auto) % (1.0-10.0) Eosinophils (%) (Auto) % (0.0-3.0) Basophils (%) (Auto) % (0.0-2.0) Sodium Level 139 mEQ/L (135-145) Potassium Level 3.6 mEQ/L (3.4-4.9) Chloride Level 102 mEQ/L (98-107) Carbon Dioxide Level 24 mEQ/L (20-30) Anion Gap 13 (5-15) Blood Urea Nitrogen 16 mg/dL (7-23) Creatinine 1.0 mg/dL (0.5-0.9) H Estimat Glomerular Filtration Rate mL/min (>60) Glucose Level 99 mg/dL (74-106) Calcium Level 8.8 mg/dL (8.6-10.2) Current Medications Medications (Trade) Dose Ordered Sig/Amanda Route PRN Reason Start Time Stop Time Status Last Admin Dose Admin Acetaminophen (Tylenol) 650 mg Q4H PRN ORAL Prn Headache/Temp > 101 02/15/17 08:30 03/17/17 08:29 02/15/17 08:30 Albuterol/ Ipratropium (DuoNeb 0.5-3(2.5)mg/3ml) 3 ml Q4H PRN HHN Shortness of Breath 02/12/17 12:00 02/17/17 11:59 Amiodarone HCl 100 mg 100 mg DAILY ORAL 02/13/17 09:00 03/15/17 08:59 02/15/17 08:30 Aspirin (ASA) 162 mg DAILY ORAL 02/13/17 09:00 03/15/17 08:59 02/15/17 08:30 Diltiazem HCl (Cardizem) 10 mg EVERY HOUR PRN IV HR>120 02/12/17 16:00 03/14/17 15:59 Doxycycline Monohydrate (Vibramycin) 100 mg EVERY 12 HOURS ORAL 02/13/17 11:30 02/20/17 11:29 02/15/17 08:30 Enalaprilat (Vasotec) 2.5 mg Q6H PRN IV sbp more than 160 02/12/17 12:00 03/14/17 11:59 Heparin Sodium/ Dextrose (Heparin) 500 ml @ 16.982 mls/ hr Q24H IV 02/13/17 02:15 03/15/17 02:14 02/15/17 06:01 Morphine Sulfate (Morphine Sulfate) 2 mg Q4H PRN IVP Severe Pain (Pain Scale 7-10) 02/12/17 12:00 02/19/17 11:59 Nitroglycerin (Ntg) 0.4 mg Q5MIN X 3 DOSES PRN SL Prn Chest Pain 02/12/17 12:00 03/14/17 11:59 Ondansetron HCl (Zofran) 4 mg Q6H PRN IVP Nausea & Vomiting 02/12/17 12:00 03/14/17 11:59 02/12/17 16:06 Pantoprazole (Protonix) 40 mg DAILY ORAL 02/13/17 09:00 03/15/17 08:59 02/15/17 08:30 Polyethylene Glycol (Miralax) 17 gm DAILYPRN PRN ORAL Constipation 02/12/17 12:00 03/14/17 11:59 Temazepam (Restoril) 15 mg HSPRN PRN ORAL Insomnia 02/12/17 21:00 02/19/17 20:59 VIVI BOWLES M.D. Feb 15, 2017 09:55
[2017-02-15 12:00] VITALS: BP 110/60
[2017-02-15] MEDS ORDERED: PACERONE200 MG ORAL (12:20)
[2017-02-15] MEDS ORDERED: DOXYCYCLINE HY100 M6 PO (12:25)
--- NOTE | 2017-02-15 12:31 | Pulmonology Progress Note ---
Assessment/Plan Problems: (1) ACS (acute coronary syndrome) (2) Paroxysmal a-fib (3) Cholecystitis (4) Constipation (5) UTI (urinary tract infection) Assessment/Plan heart rate better f/u cardio evaluation, amiodarone dose was decreased had large bm yesterday cleared by cardio dc home with oral antibiotics Subjective ROS Limited/Unobtainable: No Constitutional: Reports: no symptoms HEENT: Repors: no symptoms Respiratory: Reports: no symptoms Allergies: Coded Allergies: Dried Fruit (Verified Allergy, Unknown, 02/12/17) all fruit PEANUT (Verified Allergy, Unknown, 02/12/17) Objective Last 24 Hour Vital Signs Date Time Temp Pulse Resp B/P Pulse Ox O2 Delivery O2 Flow Rate FiO2 02/15/17 08:00 68 02/15/17 08:00 96.9 68 18 100/54 98 Room Air 02/15/17 07:42 72 18 Room Air 02/15/17 04:00 97.9 46 19 101/54 96 Room Air 02/15/17 04:00 48 02/15/17 00:00 50 02/15/17 00:00 97.9 51 20 114/65 97 Room Air 02/14/17 20:00 48 02/14/17 20:00 97.9 57 21 143/79 97 Room Air 02/14/17 19:33 60 16 Room Air 02/14/17 16:00 57 02/14/17 15:16 97.9 63 18 121/76 100 Room Air 02/14/17 12:35 97.9 59 18 120/66 100 Room Air Intake and Output 02/14/17 02/15/17 19:00 07:00 Intake Total 1098.878 ml 192.68 ml Output Total 250 ml Balance 848.878 ml 192.68 ml Intake Oral 630 ml IV Total 468.878 ml 192.68 ml Output Urine Total 250 ml # Voids 2 4 # Bowel Movements 3 1 General Appearance: WD/WN HEENT: normocephalic Respiratory/Chest: chest wall non-tender, lungs clear Cardiovascular: normal peripheral pulses, no JVD Abdomen: normal bowel sounds, soft, non tender Neurologic/Psychiatric: data officer II-XII grossly normal Lymphatic: no neck adenopathy Laboratory Tests 02/14/17 18:50: Activated Partial Thromboplast Time 100H 02/15/17 01:45: Activated Partial Thromboplast Time 70H, White Blood Count 3.4L, Red Blood Count 3.10L, Hemoglobin 10.7L, Hematocrit 31.9L, Mean Corpuscular Volume 103H, Mean Corpuscular Hemoglobin 34.5H, Mean Corpuscular Hemoglobin Concent 33.5, Red Cell Distribution Width 11.6, Platelet Count 190, Mean Platelet Volume 6.4L , Neutrophils (%) (Auto) , Lymphocytes (%) (Auto) , Monocytes (%) (Auto) , Eosinophils (%) (Auto) , Basophils (%) (Auto) , Sodium Level 139, Potassium Level 3.6, Chloride Level 102, Carbon Dioxide Level 24, Anion Gap 13, Blood Urea Nitrogen 16, Creatinine 1.0H, Estimat Glomerular Filtration Rate , Glucose Level 99, Calcium Level 8.8 Current Medications Medications (Trade) Dose Ordered Sig/Amanda Route PRN Reason Start Time Stop Time Status Last Admin Dose Admin Acetaminophen (Tylenol) 650 mg Q4H PRN ORAL Prn Headache/Temp > 101 02/15/17 08:30 03/17/17 08:29 02/15/17 08:30 Albuterol/ Ipratropium (DuoNeb 0.5-3(2.5)mg/3ml) 3 ml Q4H PRN HHN Shortness of Breath 02/12/17 12:00 02/17/17 11:59 Amiodarone HCl 100 mg 100 mg DAILY ORAL 02/13/17 09:00 03/15/17 08:59 02/15/17 08:30 Aspirin (ASA) 162 mg DAILY ORAL 02/13/17 09:00 03/15/17 08:59 02/15/17 08:30 Diltiazem HCl (Cardizem) 10 mg EVERY HOUR PRN IV HR>120 02/12/17 16:00 03/14/17 15:59 Doxycycline Monohydrate (Vibramycin) 100 mg EVERY 12 HOURS ORAL 02/13/17 11:30 02/20/17 11:29 02/15/17 08:30 Enalaprilat (Vasotec) 2.5 mg Q6H PRN IV sbp more than 160 02/12/17 12:00 03/14/17 11:59 Heparin Sodium/ Dextrose (Heparin) 500 ml @ 16.982 mls/ hr Q24H IV 02/13/17 02:15 03/15/17 02:14 02/15/17 06:01 Morphine Sulfate (Morphine Sulfate) 2 mg Q4H PRN IVP Severe Pain (Pain Scale 7-10) 02/12/17 12:00 02/19/17 11:59 Nitroglycerin (Ntg) 0.4 mg Q5MIN X 3 DOSES PRN SL Prn Chest Pain 02/12/17 12:00 03/14/17 11:59 Ondansetron HCl (Zofran) 4 mg Q6H PRN IVP Nausea & Vomiting 02/12/17 12:00 03/14/17 11:59 02/12/17 16:06 Pantoprazole (Protonix) 40 mg DAILY ORAL 02/13/17 09:00 03/15/17 08:59 02/15/17 08:30 Polyethylene Glycol (Miralax) 17 gm DAILYPRN PRN ORAL Constipation 02/12/17 12:00 03/14/17 11:59 Temazepam (Restoril) 15 mg HSPRN PRN ORAL Insomnia 02/12/17 21:00 02/19/17 20:59 JAIME IVORY Feb 15, 2017 12:31
--- NOTE | 2017-02-16 12:13 | Discharge Summary ---
Discharge Summary Hospital Course Date of Admission February 12, 2017 at 08:30 Date of Discharge Feb 15, 2017 at 13:40 Admitting Diagnosis abdominal pain HPI Alisia Amezquita is a 81 year old female who was admitted on February 12, 2017 at 08: 30 for Abdominal Pain Hospital Course [id number] Discharge Discharge Disposition Patient was discharged to Home with Home Health(06) Discharge Diagnoses: Jennifer Ascencio NP Feb 16, 2017 12:13
--- NOTE | 2017-02-17 02:30 | Discharge Summary 2 SIG ---
DATE OF ADMISSION: 02/12/2017 DATE OF DISCHARGE: 02/15/2017 CONSULTANTS: 1. Harshal Kumar M.D. 2. Akil Hunter M.D. 3. Gabe Romero M.D. BRIEF HOSPITAL COURSE: The patient is an 81-year-old female with atrial fibrillation and hypertension, was brought in by paramedics for complaints of left-sided abdominal pain and constipation. On evaluation at ED, laboratories were unremarkable. D-dimer was elevated. CTA of the chest was negative for PE, aortic dissection, or aneurysm. CAT scan of the abdomen and pelvis showed cholelithiasis with gallbladder distention. The patient was then admitted for further evaluation. She was started on intravenous Zithromax by Infectious Disease specialist and was seen by Dr. Hunter for evaluation of abdominal pain. She has history of stomach CA and had colonoscopy three years ago with colonic polyps. She underwent esophagogastroduodenoscopy on 02/14/2017 with findings of some inflammation and redness at the anastomoses and status post biopsy. The patient also had a subtotal gastrectomy with small partial left. HIDA scan done was negative with no evidence of cystic duct or common bile duct obstruction. She was seen by Dr. Kumar. The patient has history of paroxysmal atrial fibrillation and had been on Eliquis. Eliquis was discontinued and changed to IV heparin in preparation for invasive procedures needed during inpatient stay. The amiodarone was also decreased to 100 mg daily. Troponin has been negative. EKG showed no acute changes. Echocardiogram done showed good left ventricular systolic function. She was recommended need to decrease amiodarone and to see her occupational therapy manager upon discharge. She was eventually discharged home to continue doxycycline for 30 days to continue doxycycline for three more days as outpatient. FINAL DIAGNOSES: 1. Acute cholecystitis. 2. Bronchitis. 3. Paroxysmal atrial fibrillation. 4. Constipation. 5. Gastric cancer. 6. Hypertension. 7. Fecal impaction. 8. Left chest pain, chest pain type atypical. DISPOSITION: The patient was discharged home with home health. Renea Barreto M.D. I have been assigned to dictate discharge summary on this account and I was not involved in the patient's management. Jennifer Ascencio N.P. DR: DELORIS JOB#: [id number] CC:
== END 2017-02-15 13:40 | disposition home health service (06) | DRG 445 ==
LOC: EDBD 06:40 → EMR 07:53 → EDBEDREQ 08:25 → 4W 08:30 → 2E 15:36
PROC: 0DJ08ZZ Inspection of Upper Intestinal Tract, Via Natural or Artificial Opening Endoscopic (ICD-10-PCS; principal; 2017-02-14 11:15)
DX: K80.20 Calculus of gallbladder without cholecystitis without obstruction (principal); N39.0 Urinary tract infection, site not specified; I48.0 Paroxysmal atrial fibrillation; R00.1 Bradycardia, unspecified; K59.00 Constipation, unspecified; K29.70 Gastritis, unspecified, without bleeding; K56.41 Fecal impaction; Z85.028 Personal history of other malignant neoplasm of stomach; E78.5 Hyperlipidemia, unspecified; R07.89 Other chest pain; J40 Bronchitis, not specified as acute or chronic; I10 Essential (primary) hypertension
CPT/HCPCS: 36415; 71010; 71275; 74177; 78266; 80048; 80053; 80061; 81003; 82378; 83690; 84443; 84484; 85007; 85025; 85379; 85610; 85730; 86140; 93005; 93306; 94003; 94150; 94664; J2405